=== PATIENT | male | born 1960 | race Caucasian/White ===

== ENCOUNTER 2019-10-15 17:23 | Emergency (ER) | payer OTHER ==
[~2019-10-15] VITALS: Ht 170.2 cm; Wt 76.8 kg
[~2019-10-15 17:23] MED LIST: QUET100T PO
[2019-10-15 17:27] VITALS: BP 114/72
[2019-10-15] MEDS ORDERED: HYD25 PO (17:32)
[2019-10-15] MEDS ORDERED: OMEG-50 PO (17:32)
[2019-10-15] MEDS ORDERED: RISP2TAB23 PO (17:32)
[2019-10-15] MEDS ORDERED: MULT1CAP32 PO (17:32)
[2019-10-15] MEDS ORDERED: QUET200T PO (17:32)
[2019-10-15] MEDS ORDERED: LEVO100 PO (17:32)
[2019-10-15] MEDS ORDERED: ESCI-8 PO (17:32)
[2019-10-15] MEDS ORDERED: ASPI-728 PO (17:32)
[2019-10-15 18:40] LABS: EOSINOPHILS % (AUTO) 2.4 % (1.0-6.0); HEMATOCRIT 38.6 % (41-53); HEMOGLOBIN 12.8 g/dL (13.5-17.5); LYMPHOCYTES # (AUTO) 2.2 K/uL (1.0-4.8); LYMPHOCYTES % (AUTO) 28.9 % (22.0-44.0); MEAN CORPUSCULAR HEMOGLOBIN 28.2 pg (26.0-34.0); MEAN CORPUSCULAR HGB CONC 33.3 G/dL (31.0-37.0); MEAN CORPUSCULAR VOLUME 85 fL (80-100); MONOCYTES # (AUTO) 0.6 K/uL (0.1-1.0); MONOCYTES % (AUTO) 8.4 % (2.0-9.0); NEUTROPHILS # (AUTO) 4.5 K/uL (1.8-7.7); NEUTROPHILS % (AUTO) 59.3 % (40.0-70.0); PLATELET COUNT (AUTO) 292 K/uL (150-450); RED BLOOD CELL COUNT(AUTO) 4.55 MIL/uL (4.50-5.90); RED CELL DISTRIBUTION WIDTH 15.4 % (11.5-14.5)
[2019-10-15 18:41] LABS: ANION GAP 7 mmol/L (8-16); CALCIUM, TOTAL 8.8 mg/dL (8.8-10.5); CARBON DIOXIDE 29 mmol/L (22-29); CHLORIDE 105 mmol/L (98-107); CREATININE 1.19 mg/dL (0.60-1.30); GLOMERULAR FILTR. RATE CALC > 60 mL/min (>60); GLUCOSE,RANDOM 105 mg/dL (70-110); POTASSIUM 3.8 mmol/L (3.5-5.1); SODIUM SERUM 141 mmol/L (136-145); UREA NITROGEN, BLOOD 18 mg/dL (7-18)
[2019-10-15 18:47] LABS: ALANINE AMINOTRANSFERASE 29 U/L (12-78); ALBUMIN 4.1 g/dL (3.4-5.0); ALKALINE PHOSPHATASE 73 U/L (46-116); ASPARTATE AMINOTRANSFERASE 26 U/L (15-37); BILIRUBIN,TOTAL 0.7 mg/dL (0.1-1.0); TOTAL PROTEIN, SERUM 7.5 g/dL (6.4-8.2)
[2019-10-15] MEDS ORDERED: RisperiDONE 1 MG TABLET PO ONE (19:00)
== END 2019-10-15 19:32 | disposition home or self-care (01) ==
LOC: EMS 17:38
DX: F20.9 Schizophrenia, unspecified (principal); Z79.82 Long term (current) use of aspirin
CPT/HCPCS: 36415; 80053; 85025; 99284; G0480

== ENCOUNTER 2020-05-07 10:36 | Inpatient (IN) | payer MEDICARE, MEDICAID ==
[~2020-05-07] VITALS: Ht 170.2 cm; Wt 93.0 kg
[~2020-05-07 10:36] MED LIST changes: +ASPI-1450 PO; +ESCI-8 PO; +HYD25 PO; +LEVO100 PO; +MULT1CAP32 PO; +OMEG-50 PO; -QUET100T PO; +QUET200T PO; +RISP2TAB45 PO
[2020-05-07 12:27] LABS: ANION GAP 10 mmol/L (8-16); CALCIUM, TOTAL 8.5 mg/dL (8.8-10.5); CARBON DIOXIDE 26 mmol/L (22-29); CHLORIDE 108 mmol/L (98-107); CREATININE 0.78 mg/dL (0.60-1.30); GLOMERULAR FILTR. RATE CALC > 60 mL/min (>60); GLUCOSE,RANDOM 98 mg/dL (70-110); POTASSIUM 4.4 mmol/L (3.5-5.1); SODIUM SERUM 144 mmol/L (136-145); UREA NITROGEN, BLOOD 12 mg/dL (7-18)
[2020-05-07 12:29] LABS: AMPHET/METH SCREEN,URINE NEGATIVE (NEGATIVE); BARBITURATE SCREEN, URINE NEGATIVE (NEGATIVE); BENZODIAZEPINES SCREEN,URINE NEGATIVE (NEGATIVE); CANNABINOID SCREEN,URINE NEGATIVE (NEGATIVE); COCAINE SCREEN,URINE NEGATIVE (NEGATIVE); METHADONE SCREEN, URINE NEGATIVE (NEGATIVE); OPIATE SCREEN,URINE NEGATIVE (NEGATIVE)
[2020-05-07 12:30] LABS: PHENCYCLIDINE SCREEN,URINE NEGATIVE (NEGATIVE)
[2020-05-07 12:31] LABS: BASOPHILS % (AUTO) 0.8 % (0.0-2.0); EOSINOPHILS % (AUTO) 4.6 % (1.0-6.0); HEMATOCRIT 36.8 % (41-53); LYMPHOCYTES # (AUTO) 1.6 K/uL (1.0-4.8); LYMPHOCYTES % (AUTO) 26.4 % (22.0-44.0); MEAN CORPUSCULAR HEMOGLOBIN 27.7 pg (26.0-34.0); MEAN CORPUSCULAR HGB CONC 32.6 G/dL (31.0-37.0); MEAN CORPUSCULAR VOLUME 85 fL (80-100); MONOCYTES # (AUTO) 0.6 K/uL (0.1-1.0); MONOCYTES % (AUTO) 9.4 % (2.0-9.0); NEUTROPHILS # (AUTO) 3.6 K/uL (1.8-7.7); NEUTROPHILS % (AUTO) 58.8 % (40.0-70.0); PLATELET COUNT (AUTO) 356 K/uL (150-450); RED BLOOD CELL COUNT(AUTO) 4.34 MIL/uL (4.50-5.90); RED CELL DISTRIBUTION WIDTH 15.5 % (11.5-14.5)
[2020-05-07 12:32] LABS: ALANINE AMINOTRANSFERASE 24 U/L (12-78); ALBUMIN 3.3 g/dL (3.4-5.0); ALKALINE PHOSPHATASE 81 U/L (46-116); ASPARTATE AMINOTRANSFERASE 22 U/L (15-37); BILIRUBIN,TOTAL 0.4 mg/dL (0.1-1.0); TOTAL PROTEIN, SERUM 6.6 g/dL (6.4-8.2)
[2020-05-07 13:19] LABS: COVID AG,FIA SOURCE NASOPHARYNGEAL
[2020-05-07 16:41] VITALS: BP 135/89
[2020-05-07] MEDS ORDERED: PNEUMOCOCCAL VACCINE POLYVALENT 0.5 ML VIAL [PPSV23] IM ONE (17:15)
[2020-05-08 00:50] VITALS: BP 137/79
[2020-05-08 07:31] LABS: CHOL/HDL RATIO 2.7 (4.2-7.3)
[2020-05-08 07:51] LABS: FREE T4 (FREE THYROXINE) 0.93 ng/dL (0.76-1.46); THYROID STIMULATING HORMONE 4.67 uIU/mL (0.36-3.74)
[2020-05-08 08:35] VITALS: BP 138/90
[2020-05-08] MEDS: ESCITALOPRAM OXALATE 10 MG TABLET PO SCH (11:05)
[2020-05-08] MEDS: BACITRACIN 28 GM OINTMENT TP SCH (16:06)
[2020-05-08 16:21] VITALS: BP 121/85
[2020-05-08] MEDS: QUEtiapine FUMARATE 200 MG TABLET PO SCH (20:27)
[2020-05-09 00:35] VITALS: BP 139/76
[2020-05-09 08:21] VITALS: BP 125/88
[2020-05-09] MEDS: ESCITALOPRAM OXALATE 10 MG TABLET PO SCH (08:41)
[2020-05-09] MEDS: BACITRACIN 28 GM OINTMENT TP SCH ×2 (08:41→17:10)
[2020-05-09 16:30] VITALS: BP 126/64
[2020-05-09] MEDS: LORazepam 2 MG TABLET PO PRN (17:11)
[2020-05-09] MEDS: QUEtiapine FUMARATE 200 MG TABLET PO SCH (20:05)
[2020-05-10 00:21] VITALS: BP 128/68
[2020-05-10 08:23] VITALS: BP 121/79
[2020-05-10] MEDS: ESCITALOPRAM OXALATE 10 MG TABLET PO SCH (10:00)
[2020-05-10] MEDS: BACITRACIN 28 GM OINTMENT TP SCH ×2 (10:02→19:34)
[2020-05-10 16:25] VITALS: BP 122/77
[2020-05-10] MEDS: QUEtiapine FUMARATE 200 MG TABLET PO SCH (20:11)
[2020-05-11 00:57] VITALS: BP 127/65
[2020-05-11 08:39] VITALS: BP 117/69
[2020-05-11] MEDS: ESCITALOPRAM OXALATE 10 MG TABLET PO SCH (08:39)
[2020-05-11] MEDS: BACITRACIN 28 GM OINTMENT TP SCH ×2 (08:39→16:01)
[2020-05-11] MEDS ORDERED: IBUPROFEN 400 MG TABLET PO PRN (15:30)
[2020-05-11] MEDS ORDERED: PETROLATUM,WHITE 28 GM JELLY TP PRN (15:30)
[2020-05-11] MEDS ORDERED: ACETAMINOPHEN 325 MG TABLET PO PRN (15:30)
[2020-05-11] MEDS ORDERED: DOCUSATE SODIUM 100 MG CAPSULE PO PRN (15:30)
[2020-05-11] MEDS ORDERED: MAGNESIUM HYDROXIDE SUSPENSION 30 ML UDCUP PO PRN (15:30)
[2020-05-11] MEDS ORDERED: NICOTINE 14 MG/24 HOUR PATCH TD PRN (15:30)
[2020-05-11] MEDS ORDERED: ONDANSETRON HCL 4 MG TABLET PO PRN (15:30)
[2020-05-11] MEDS ORDERED: CloNIDine HCL 0.1 MG TABLET PO PRN (15:30)
[2020-05-11] MEDS ORDERED: LOPERAMIDE HCL 2 MG CAPSULE PO PRN (15:30)
[2020-05-11] MEDS ORDERED: ALBUTEROL SULFATE HFA 90 MCG/PUFF 8 GM INHALER IH PRN (15:30)
[2020-05-11] MEDS ORDERED: MAG HYDROX/AL HYDROX/SIMETH ES 30 ML SUSPENSION UDCUP PO PRN (15:30)
[2020-05-11] MEDS ORDERED: GuaiFENesin/D-METHORPHAN [SUGAR-FREE] 200-20MG/10 ML SYRUP UDCUP PO PRN (15:30)
[2020-05-11 16:18] VITALS: BP 122/88
[2020-05-11] MEDS: QUEtiapine FUMARATE 200 MG TABLET PO SCH (20:03)
[2020-05-12 04:45] VITALS: BP 115/68
[2020-05-12] MEDS: BACITRACIN 28 GM OINTMENT TP SCH ×2 (08:05→16:04)
[2020-05-12] MEDS: ESCITALOPRAM OXALATE 10 MG TABLET PO SCH (08:05)
[2020-05-12 08:13] VITALS: BP 112/77
[2020-05-12 08:48] LABS: COVID AG,FIA SOURCE NASOPHARYNGEAL
[2020-05-12 16:15] VITALS: BP 117/72
[2020-05-12] MEDS: QUEtiapine FUMARATE 300 MG TABLET PO SCH (20:03)
[2020-05-13 00:49] VITALS: BP 102/64
[2020-05-13] MEDS: ESCITALOPRAM OXALATE 10 MG TABLET PO SCH (08:03)
[2020-05-13] MEDS: BACITRACIN 28 GM OINTMENT TP SCH ×2 (08:04→16:47)
[2020-05-13 08:29] VITALS: BP 120/73
[2020-05-13 16:13] VITALS: BP 125/73
[2020-05-13] MEDS: QUEtiapine FUMARATE 300 MG TABLET PO SCH (20:02)
[2020-05-14 01:03] VITALS: BP 109/68
[2020-05-14] MEDS: ESCITALOPRAM OXALATE 10 MG TABLET PO SCH (08:26)
[2020-05-14] MEDS: BACITRACIN 28 GM OINTMENT TP SCH ×2 (08:27→17:32)
[2020-05-14 08:55] VITALS: BP 121/79
[2020-05-14 16:12] VITALS: BP 124/94
[2020-05-14] MEDS: QUEtiapine FUMARATE 300 MG TABLET PO SCH (20:21)
[2020-05-15 06:22] VITALS: BP 103/83
[2020-05-15 08:37] VITALS: BP 118/80
[2020-05-15] MEDS: ESCITALOPRAM OXALATE 10 MG TABLET PO SCH (08:43)
[2020-05-15] MEDS: BACITRACIN 28 GM OINTMENT TP SCH ×2 (08:43→17:42)
[2020-05-15 16:31] VITALS: BP 121/86
[2020-05-15] MEDS: QUEtiapine FUMARATE 300 MG TABLET PO SCH (20:34)
[2020-05-16 01:07] VITALS: BP 118/84
[2020-05-16 08:21] VITALS: BP 131/71
[2020-05-16] MEDS: ESCITALOPRAM OXALATE 10 MG TABLET PO SCH (08:23)
[2020-05-16] MEDS: BACITRACIN 28 GM OINTMENT TP SCH ×2 (08:23→16:41)
[2020-05-16 16:19] VITALS: BP 115/71
[2020-05-16] MEDS: QUEtiapine FUMARATE 200 MG TABLET PO SCH (20:13)
[2020-05-17 05:51] VITALS: BP 120/78
[2020-05-17 08:30] VITALS: BP 114/68
[2020-05-17] MEDS: BACITRACIN 28 GM OINTMENT TP SCH ×2 (08:36→17:13)
[2020-05-17] MEDS: ESCITALOPRAM OXALATE 10 MG TABLET PO SCH (08:36)
[2020-05-17] MEDS: LORazepam 2 MG TABLET PO PRN (09:08)
[2020-05-17] MEDS: HALOPERIDOL 5 MG TABLET PO PRN ×2 (13:04→17:14)
[2020-05-17 16:11] VITALS: BP 127/77
[2020-05-17] MEDS: QUEtiapine FUMARATE 200 MG TABLET PO SCH (20:17)
[2020-05-18 05:40] VITALS: BP 122/70
[2020-05-18] MEDS: ESCITALOPRAM OXALATE 10 MG TABLET PO SCH (08:33)
[2020-05-18] MEDS: BACITRACIN 28 GM OINTMENT TP SCH ×2 (08:34→17:04)
[2020-05-18 08:49] VITALS: BP 134/76
[2020-05-18 16:27] VITALS: BP 123/86
[2020-05-18] MEDS: QUEtiapine FUMARATE 200 MG TABLET PO SCH (20:14)
[2020-05-19 04:42] VITALS: BP 127/93
[2020-05-19] MEDS: ESCITALOPRAM OXALATE 10 MG TABLET PO SCH (08:22)
[2020-05-19] MEDS: BACITRACIN 28 GM OINTMENT TP SCH ×2 (08:27→16:12)
[2020-05-19 08:56] LABS: COVID AG,FIA SOURCE NASOPHARYNGEAL
[2020-05-19 08:59] LABS: APPEARANCE,URINE CLEAR (CLEAR); BILIRUBIN,URINE NEGATIVE (NEGATIVE); GLUCOSE, URINE (UA) NEGATIVE (NEGATIVE); KETONES,URINE NEGATIVE (NEGATIVE); LEUKOCYTE ESTERASE ,URINE NEGATIVE (NEGATIVE); NITRATE,URINE NEGATIVE (NEGATIVE); OCCULT BLOOD,URINE NEGATIVE (NEGATIVE); PROTEIN,URINE NEGATIVE (NEGATIVE); UROBILINOGEN,URINE 0.2 mg/dL (<=1.0)
[2020-05-19 09:04] LABS: AMPHET/METH SCREEN,URINE NEGATIVE (NEGATIVE); BARBITURATE SCREEN, URINE NEGATIVE (NEGATIVE); BENZODIAZEPINES SCREEN,URINE NEGATIVE (NEGATIVE); CANNABINOID SCREEN,URINE NEGATIVE (NEGATIVE); COCAINE SCREEN,URINE NEGATIVE (NEGATIVE); METHADONE SCREEN, URINE NEGATIVE (NEGATIVE); OPIATE SCREEN,URINE NEGATIVE (NEGATIVE)
[2020-05-19 09:05] LABS: PHENCYCLIDINE SCREEN,URINE NEGATIVE (NEGATIVE)
[2020-05-19 09:12] VITALS: BP 137/86
[2020-05-19 16:36] VITALS: BP 139/86
[2020-05-19] MEDS: QUEtiapine FUMARATE 200 MG TABLET PO SCH (20:53)
[2020-05-20 03:51] VITALS: BP 104/74
[2020-05-20 08:37] VITALS: BP 135/86
[2020-05-20] MEDS: ESCITALOPRAM OXALATE 10 MG TABLET PO SCH (08:41)
[2020-05-20] MEDS: BACITRACIN 28 GM OINTMENT TP SCH ×2 (08:41→16:54)
[2020-05-20 16:14] VITALS: BP 137/81
[2020-05-20] MEDS: QUEtiapine FUMARATE 200 MG TABLET PO SCH (20:20)
[2020-05-21 00:26] VITALS: BP 121/91
[2020-05-21] MEDS: ESCITALOPRAM OXALATE 10 MG TABLET PO SCH (08:19)
[2020-05-21] MEDS: BACITRACIN 28 GM OINTMENT TP SCH ×2 (08:20→16:12)
[2020-05-21 08:32] VITALS: BP 130/90
[2020-05-21] MEDS: LORazepam 2 MG TABLET PO PRN (12:20)
[2020-05-21 16:12] VITALS: BP 107/75
[2020-05-21] MEDS: QUEtiapine FUMARATE 200 MG TABLET PO SCH (20:06)
[2020-05-22 06:18] VITALS: BP 110/66
[2020-05-22] MEDS: ESCITALOPRAM OXALATE 10 MG TABLET PO SCH (08:24)
[2020-05-22] MEDS: BACITRACIN 28 GM OINTMENT TP SCH ×2 (08:29→16:04)
[2020-05-22 08:30] VITALS: BP 138/78
[2020-05-22 16:15] VITALS: BP 129/89
[2020-05-22] MEDS: QUEtiapine FUMARATE 200 MG TABLET PO SCH (20:09)
[2020-05-23 05:56] VITALS: BP 124/88
[2020-05-23 08:09] VITALS: BP 132/91
[2020-05-23] MEDS: ESCITALOPRAM OXALATE 10 MG TABLET PO SCH (09:14)
[2020-05-23] MEDS: BACITRACIN 28 GM OINTMENT TP SCH ×2 (09:15→16:52)
[2020-05-23 16:06] VITALS: BP 140/96
[2020-05-23] MEDS: QUEtiapine FUMARATE 200 MG TABLET PO SCH (20:10)
[2020-05-24 04:47] VITALS: BP 112/67
[2020-05-24] MEDS: BACITRACIN 28 GM OINTMENT TP SCH ×2 (08:13→16:27)
[2020-05-24] MEDS: ESCITALOPRAM OXALATE 10 MG TABLET PO SCH (08:14)
[2020-05-24] MEDS: LORazepam 2 MG TABLET PO PRN (08:18)
[2020-05-24 09:35] VITALS: BP 119/74
[2020-05-24] MEDS: HALOPERIDOL 5 MG TABLET PO PRN (14:11)
[2020-05-24 16:16] VITALS: BP 117/76
[2020-05-24] MEDS: QUEtiapine FUMARATE 200 MG TABLET PO SCH (20:33)
[2020-05-25 07:08] VITALS: BP 102/80
[2020-05-25 08:17] VITALS: BP 110/72
[2020-05-25] MEDS: ESCITALOPRAM OXALATE 10 MG TABLET PO SCH (09:11)
[2020-05-25] MEDS: HALOPERIDOL 5 MG TABLET PO PRN ×2 (09:11→16:39)
[2020-05-25] MEDS: BACITRACIN 28 GM OINTMENT TP SCH ×2 (09:11→20:30)
[2020-05-25] MEDS ORDERED: TUBERCULIN, PURIFIED PROTEIN DERIVATIVE 5 TU/0.1 ML SYRINGE ID ONE (13:15)
[2020-05-25 16:16] VITALS: BP 148/72
[2020-05-25] MEDS: QUEtiapine FUMARATE 200 MG TABLET PO SCH (20:30)
[2020-05-26 05:34] VITALS: BP 122/86
[2020-05-26] MEDS: ESCITALOPRAM OXALATE 10 MG TABLET PO SCH (08:31)
[2020-05-26] MEDS: HALOPERIDOL 5 MG TABLET PO PRN (08:31)
[2020-05-26] MEDS: BACITRACIN 28 GM OINTMENT TP SCH (08:32)
[2020-05-26 08:49] VITALS: BP 141/77
[2020-05-26 16:26] VITALS: BP 121/90
[2020-05-26] MEDS: QUEtiapine FUMARATE 300 MG TABLET PO SCH (20:14)
[2020-05-27 06:07] VITALS: BP 106/62
[2020-05-27 08:03] LABS: ALANINE AMINOTRANSFERASE 23 U/L (12-78); ALBUMIN 3.6 g/dL (3.4-5.0); ALKALINE PHOSPHATASE 69 U/L (46-116); ANION GAP 5 mmol/L (8-16); ASPARTATE AMINOTRANSFERASE 13 U/L (15-37); BILIRUBIN,TOTAL 0.4 mg/dL (0.1-1.0); CALCIUM, TOTAL 8.9 mg/dL (8.8-10.5); CARBON DIOXIDE 29 mmol/L (22-29); CHLORIDE 106 mmol/L (98-107); CREATININE 0.84 mg/dL (0.60-1.30); GLOMERULAR FILTR. RATE CALC > 60 mL/min (>60); GLUCOSE,RANDOM 88 mg/dL (70-110); POTASSIUM 4.9 mmol/L (3.5-5.1); SODIUM SERUM 140 mmol/L (136-145); UREA NITROGEN, BLOOD 19 mg/dL (7-18)
[2020-05-27] MEDS: ESCITALOPRAM OXALATE 10 MG TABLET PO SCH (08:14)
[2020-05-27 08:29] VITALS: BP 128/88
[2020-05-27] MEDS: LORazepam 2 MG TABLET PO PRN (09:19)
[2020-05-27 16:29] VITALS: BP 124/90
[2020-05-27] MEDS: QUEtiapine FUMARATE 300 MG TABLET PO SCH (20:14)
[2020-05-28 00:30] VITALS: BP 114/73
[2020-05-28] MEDS: HALOPERIDOL 5 MG TABLET PO PRN ×2 (08:29→17:29)
[2020-05-28] MEDS: ESCITALOPRAM OXALATE 10 MG TABLET PO SCH (08:29)
[2020-05-28 08:51] VITALS: BP 119/81
[2020-05-28 16:18] VITALS: BP 135/95
[2020-05-28] MEDS: LORazepam 2 MG TABLET PO PRN (17:29)
[2020-05-28] MEDS: QUEtiapine FUMARATE 300 MG TABLET PO SCH (20:02)
[2020-05-29 00:10] VITALS: BP 116/73
[2020-05-29 08:14] LABS: APPEARANCE,URINE CLEAR (CLEAR); BILIRUBIN,URINE NEGATIVE (NEGATIVE); GLUCOSE, URINE (UA) NEGATIVE (NEGATIVE); KETONES,URINE NEGATIVE (NEGATIVE); LEUKOCYTE ESTERASE ,URINE NEGATIVE (NEGATIVE); NITRATE,URINE NEGATIVE (NEGATIVE); OCCULT BLOOD,URINE NEGATIVE (NEGATIVE); PROTEIN,URINE NEGATIVE (NEGATIVE); UROBILINOGEN,URINE 0.2 mg/dL (<=1.0)
[2020-05-29 08:18] VITALS: BP 125/82
[2020-05-29 08:18] LABS: BACTERIA,URINE None Seen /HPF (None Seen); RBC,URINE None Seen /HPF (0-2); WBC,URINE None Seen /HPF (0-5)
[2020-05-29] MEDS: ESCITALOPRAM OXALATE 10 MG TABLET PO SCH (08:43)
[2020-05-29 16:11] VITALS: BP 139/74
[2020-05-29] MEDS: LORazepam 2 MG TABLET PO PRN (17:16)
[2020-05-29] MEDS: QUEtiapine FUMARATE 300 MG TABLET PO SCH (21:06)
[2020-05-29] MEDS: ZOLPIDEM TARTRATE 10 MG TABLET PO PRN (21:06)
[2020-05-30 06:17] VITALS: BP 101/69
[2020-05-30 08:27] VITALS: BP 116/78
[2020-05-30] MEDS: ESCITALOPRAM OXALATE 10 MG TABLET PO SCH (08:36)
[2020-05-30] MEDS: LORazepam 2 MG TABLET PO PRN ×2 (08:37→16:34)
[2020-05-30] MEDS: HALOPERIDOL 5 MG TABLET PO PRN (12:15)
[2020-05-30 16:13] VITALS: BP 119/77
[2020-05-30] MEDS: QUEtiapine FUMARATE 300 MG TABLET PO SCH (20:50)
[2020-05-30] MEDS: ZOLPIDEM TARTRATE 10 MG TABLET PO PRN (20:55)
[2020-05-31 06:22] VITALS: BP 125/77
[2020-05-31] MEDS: ESCITALOPRAM OXALATE 10 MG TABLET PO SCH (08:16)
[2020-05-31 08:36] VITALS: BP 119/72
[2020-05-31 16:42] VITALS: BP 132/91
[2020-05-31] MEDS: LORazepam 2 MG TABLET PO PRN (17:18)
[2020-05-31] MEDS: HALOPERIDOL 5 MG TABLET PO PRN (17:18)
[2020-05-31] MEDS: QUEtiapine FUMARATE 300 MG TABLET PO SCH (20:07)
[2020-06-01 00:46] VITALS: BP 110/76
[2020-06-01] MEDS: ESCITALOPRAM OXALATE 10 MG TABLET PO SCH (08:13)
[2020-06-01] MEDS: HALOPERIDOL 5 MG TABLET PO PRN (08:13)
[2020-06-01 08:47] VITALS: BP 126/96
[2020-06-01 16:19] VITALS: BP 134/91
[2020-06-01] MEDS: QUEtiapine FUMARATE 300 MG TABLET PO SCH (20:04)
[2020-06-02 06:34] VITALS: BP 116/82
[2020-06-02] MEDS: HALOPERIDOL 5 MG TABLET PO PRN (08:11)
[2020-06-02] MEDS: ESCITALOPRAM OXALATE 10 MG TABLET PO SCH (08:11)
[2020-06-02 08:28] VITALS: BP 135/92
[2020-06-02 08:52] LABS: COVID AG,FIA SOURCE NASOPHARYNGEAL
[2020-06-02] MEDS: LORazepam 2 MG TABLET PO PRN (13:43)
[2020-06-02 16:28] VITALS: BP 123/77
[2020-06-02] MEDS: QUEtiapine FUMARATE 300 MG TABLET PO SCH (20:21)
[2020-06-03 06:10] VITALS: BP 114/72
[2020-06-03] MEDS: HALOPERIDOL 5 MG TABLET PO PRN (08:15)
[2020-06-03] MEDS: ESCITALOPRAM OXALATE 10 MG TABLET PO SCH (08:15)
[2020-06-03 08:50] VITALS: BP 134/88
[2020-06-03] MEDS: LORazepam 2 MG TABLET PO PRN (14:58)
[2020-06-03 16:08] VITALS: BP 136/81
[2020-06-03 16:18] VITALS: BP 136/81
[2020-06-03] MEDS: QUEtiapine FUMARATE 300 MG TABLET PO SCH (20:21)
[2020-06-04 00:32] VITALS: BP 111/74
[2020-06-04] MEDS: ESCITALOPRAM OXALATE 10 MG TABLET PO SCH (08:25)
[2020-06-04 08:26] VITALS: BP 128/73
[2020-06-04 16:13] VITALS: BP 140/97
[2020-06-04] MEDS: QUEtiapine FUMARATE 300 MG TABLET PO SCH (20:17)
[2020-06-05 00:09] VITALS: BP 124/78
[2020-06-05] MEDS: ZOLPIDEM TARTRATE 10 MG TABLET PO PRN (00:40)
[2020-06-05] MEDS: LORazepam 2 MG TABLET PO PRN ×2 (00:40→11:00)
[2020-06-05] MEDS: HALOPERIDOL 5 MG TABLET PO PRN (08:19)
[2020-06-05] MEDS: ESCITALOPRAM OXALATE 10 MG TABLET PO SCH (08:19)
[2020-06-05 08:58] VITALS: BP 130/81
[2020-06-05 10:25] VITALS: BP_SYST 122; BP_SYST 144; BP_DIAS 105; BP_DIAS 81
[2020-06-05 10:40] VITALS: BP 122/81
[2020-06-05 11:10] VITALS: BP 130/78
[2020-06-05 17:48] VITALS: BP 135/85
[2020-06-05] MEDS: QUEtiapine FUMARATE 300 MG TABLET PO SCH (20:02)
[2020-06-06 01:07] VITALS: BP 103/64
[2020-06-06 08:15] VITALS: BP 118/74
[2020-06-06] MEDS: ESCITALOPRAM OXALATE 10 MG TABLET PO SCH (08:21)
[2020-06-06 16:47] VITALS: BP 129/87
[2020-06-06] MEDS: QUEtiapine FUMARATE 300 MG TABLET PO SCH (20:48)
[2020-06-07 00:14] VITALS: BP 112/68
[2020-06-07] MEDS: ESCITALOPRAM OXALATE 10 MG TABLET PO SCH (08:10)
[2020-06-07 08:13] VITALS: BP 145/92
[2020-06-07 16:14] VITALS: BP 140/87
[2020-06-07] MEDS: HALOPERIDOL 5 MG TABLET PO PRN (17:30)
[2020-06-07] MEDS: QUEtiapine FUMARATE 300 MG TABLET PO SCH (21:52)
[2020-06-07] MEDS: LORazepam 2 MG TABLET PO PRN (23:53)
[2020-06-07] MEDS: ZOLPIDEM TARTRATE 10 MG TABLET PO PRN (23:53)
[2020-06-08 04:48] VITALS: BP 129/69
[2020-06-08 08:36] VITALS: BP 112/72
[2020-06-08] MEDS: ESCITALOPRAM OXALATE 10 MG TABLET PO SCH (08:38)
[2020-06-08] MEDS: LORazepam 2 MG TABLET PO PRN (08:38)
[2020-06-08 16:40] VITALS: BP 116/83
[2020-06-08] MEDS: QUEtiapine FUMARATE 300 MG TABLET PO SCH (20:56)
[2020-06-08] MEDS: HALOPERIDOL 5 MG TABLET PO PRN (21:28)
[2020-06-09] MEDS: ZOLPIDEM TARTRATE 10 MG TABLET PO PRN (00:21)
[2020-06-09] MEDS: LORazepam 2 MG TABLET PO PRN ×2 (00:21→08:34)
[2020-06-09 00:31] VITALS: BP 110/78
[2020-06-09 07:50] LABS: COVID AG,FIA SOURCE NASOPHARYNGEAL
[2020-06-09 08:33] VITALS: BP 126/92
[2020-06-09] MEDS: ESCITALOPRAM OXALATE 10 MG TABLET PO SCH (08:34)
[2020-06-09 16:12] VITALS: BP 110/76
[2020-06-09] MEDS: QUEtiapine FUMARATE 300 MG TABLET PO SCH (20:18)
[2020-06-10 06:37] VITALS: BP 128/84
[2020-06-10] MEDS: LORazepam 2 MG TABLET PO PRN (08:07)
[2020-06-10] MEDS: ESCITALOPRAM OXALATE 10 MG TABLET PO SCH (08:07)
[2020-06-10 08:17] VITALS: BP 124/78
[2020-06-10 16:15] VITALS: BP 128/79
[2020-06-10] MEDS: QUEtiapine FUMARATE 300 MG TABLET PO SCH (20:12)
[2020-06-11 05:03] VITALS: BP 108/78
[2020-06-11] MEDS: ESCITALOPRAM OXALATE 10 MG TABLET PO SCH (08:37)
[2020-06-11] MEDS: LORazepam 2 MG TABLET PO PRN ×2 (08:37→16:04)
[2020-06-11 08:39] VITALS: BP 136/82
[2020-06-11] MEDS: HALOPERIDOL 5 MG TABLET PO PRN (16:04)
[2020-06-11 17:33] VITALS: BP 129/89
[2020-06-11] MEDS: QUEtiapine FUMARATE 200 MG TABLET PO SCH (20:05)
[2020-06-12 01:53] VITALS: BP 122/72
[2020-06-12] MEDS: LORazepam 2 MG TABLET PO PRN ×2 (08:07→16:04)
[2020-06-12] MEDS: ESCITALOPRAM OXALATE 10 MG TABLET PO SCH (08:07)
[2020-06-12 08:15] VITALS: BP 150/72
[2020-06-12] MEDS: HALOPERIDOL 5 MG TABLET PO PRN (16:04)
[2020-06-12 16:15] VITALS: BP 113/69
[2020-06-12] MEDS: QUEtiapine FUMARATE 200 MG TABLET PO SCH (19:54)
[2020-06-13 00:10] VITALS: BP 120/74
[2020-06-13 08:17] VITALS: BP 103/72
[2020-06-13] MEDS: ESCITALOPRAM OXALATE 10 MG TABLET PO SCH (09:13)
[2020-06-13] MEDS: LORazepam 2 MG TABLET PO PRN ×2 (09:13→16:57)
[2020-06-13] MEDS: HALOPERIDOL 5 MG TABLET PO PRN (10:48)
[2020-06-13 16:24] VITALS: BP 114/82
[2020-06-13] MEDS: QUEtiapine FUMARATE 200 MG TABLET PO SCH (20:24)
[2020-06-14 02:02] VITALS: BP 102/73
[2020-06-14 08:13] VITALS: BP 100/65
[2020-06-14] MEDS: ESCITALOPRAM OXALATE 10 MG TABLET PO SCH (09:26)
[2020-06-14 16:21] VITALS: BP 134/68
[2020-06-14] MEDS: QUEtiapine FUMARATE 200 MG TABLET PO SCH (20:27)
[2020-06-15 00:44] VITALS: BP 121/79
[2020-06-15] MEDS: HALOPERIDOL 5 MG TABLET PO PRN (08:08)
[2020-06-15] MEDS: ESCITALOPRAM OXALATE 10 MG TABLET PO SCH (08:08)
[2020-06-15 08:34] VITALS: BP 145/94
[2020-06-15] MEDS: LORazepam 2 MG TABLET PO PRN (12:27)
[2020-06-15 16:10] VITALS: BP 121/96
[2020-06-15] MEDS: QUEtiapine FUMARATE 200 MG TABLET PO SCH (20:12)
[2020-06-16 04:57] VITALS: BP 123/89
[2020-06-16 08:19] VITALS: BP 119/62
[2020-06-16 08:20] LABS: COVID AG,FIA SOURCE NASOPHARYNGEAL
[2020-06-16] MEDS: ESCITALOPRAM OXALATE 10 MG TABLET PO SCH (08:51)
[2020-06-16 16:07] VITALS: BP 129/71
[2020-06-16] MEDS: QUEtiapine FUMARATE 200 MG TABLET PO SCH (20:14)
[2020-06-17 01:07] VITALS: BP 126/76
[2020-06-17 09:07] VITALS: BP 139/97
[2020-06-17] MEDS: ESCITALOPRAM OXALATE 10 MG TABLET PO SCH (09:59)
[2020-06-17 17:26] VITALS: BP 139/86
[2020-06-17] MEDS: QUEtiapine FUMARATE 200 MG TABLET PO SCH (21:21)
[2020-06-18 05:43] VITALS: BP 129/75
[2020-06-18 08:50] VITALS: BP 134/85
[2020-06-18] MEDS: ESCITALOPRAM OXALATE 10 MG TABLET PO SCH (09:36)
[2020-06-18] MEDS: LORazepam 2 MG TABLET PO PRN (09:38)
[2020-06-18 17:35] VITALS: BP 108/71
[2020-06-18] MEDS: QUEtiapine FUMARATE 200 MG TABLET PO SCH (20:40)
[2020-06-19 05:52] VITALS: BP 132/88
[2020-06-19 08:24] VITALS: BP 118/78
[2020-06-19] MEDS: ESCITALOPRAM OXALATE 10 MG TABLET PO SCH (09:55)
[2020-06-19 16:35] VITALS: BP 133/91
[2020-06-19] MEDS: QUEtiapine FUMARATE 200 MG TABLET PO SCH (21:16)
[2020-06-20 01:26] VITALS: BP 120/68
[2020-06-20 09:07] VITALS: BP 149/98
[2020-06-20] MEDS: ESCITALOPRAM OXALATE 10 MG TABLET PO SCH (09:16)
[2020-06-20 16:30] VITALS: BP 138/91
[2020-06-20] MEDS: QUEtiapine FUMARATE 200 MG TABLET PO SCH (20:18)
[2020-06-21 00:42] VITALS: BP 115/82
[2020-06-21 08:39] VITALS: BP 133/91
[2020-06-21] MEDS: ESCITALOPRAM OXALATE 10 MG TABLET PO SCH (09:40)
[2020-06-21 17:56] VITALS: BP 139/86
[2020-06-21] MEDS: QUEtiapine FUMARATE 200 MG TABLET PO SCH (20:55)
[2020-06-22 00:54] VITALS: BP 118/72
[2020-06-22 08:51] VITALS: BP 133/90
[2020-06-22] MEDS: ESCITALOPRAM OXALATE 10 MG TABLET PO SCH (09:57)
[2020-06-22 16:27] VITALS: BP 126/87
[2020-06-22] MEDS: QUEtiapine FUMARATE 200 MG TABLET PO SCH (20:28)
[2020-06-23 04:16] VITALS: BP 116/71
[2020-06-23 09:30] VITALS: BP 121/71
[2020-06-23] MEDS: ESCITALOPRAM OXALATE 10 MG TABLET PO SCH (09:39)
[2020-06-23 17:27] VITALS: BP 123/79
[2020-06-23] MEDS: QUEtiapine FUMARATE 200 MG TABLET PO SCH (21:28)
[2020-06-24 05:25] VITALS: BP 118/68
[2020-06-24 07:29] LABS: COVID AG,FIA SOURCE NASAL SWAB
[2020-06-24 08:57] VITALS: BP 120/82
[2020-06-24] MEDS: ESCITALOPRAM OXALATE 10 MG TABLET PO SCH (09:23)
[2020-06-24 17:11] VITALS: BP 129/88
[2020-06-24] MEDS: QUEtiapine FUMARATE 200 MG TABLET PO SCH (21:06)
[2020-06-25 00:42] VITALS: BP 138/83
[2020-06-25 08:28] VITALS: BP 140/88
[2020-06-25] MEDS: ESCITALOPRAM OXALATE 10 MG TABLET PO SCH (09:31)
[2020-06-25 17:10] VITALS: BP 130/84
[2020-06-25] MEDS: QUEtiapine FUMARATE 200 MG TABLET PO SCH (20:22)
[2020-06-26 05:03] VITALS: BP 128/81
[2020-06-26 08:21] VITALS: BP 123/88
[2020-06-26] MEDS: ESCITALOPRAM OXALATE 10 MG TABLET PO SCH (08:49)
[2020-06-26] MEDS: HALOPERIDOL 5 MG TABLET PO PRN (08:49)
[2020-06-26] MEDS: LORazepam 2 MG TABLET PO PRN (08:49)
[2020-06-26 17:20] VITALS: BP 103/70
[2020-06-26] MEDS: QUEtiapine FUMARATE 200 MG TABLET PO SCH (20:59)
[2020-06-27 06:26] VITALS: BP 121/81
[2020-06-27] MEDS: ESCITALOPRAM OXALATE 10 MG TABLET PO SCH (08:40)
[2020-06-27 08:57] VITALS: BP 135/91
[2020-06-27 16:18] VITALS: BP_SYST 121; BP_SYST 140; BP_DIAS 74; BP_DIAS 87
[2020-06-27] MEDS: HALOPERIDOL 5 MG TABLET PO PRN (16:39)
[2020-06-27] MEDS: LORazepam 2 MG TABLET PO PRN (16:39)
[2020-06-27] MEDS: QUEtiapine FUMARATE 200 MG TABLET PO SCH (21:08)
[2020-06-28 04:21] VITALS: BP 124/78
[2020-06-28 09:16] VITALS: BP 114/79
[2020-06-28] MEDS: ESCITALOPRAM OXALATE 10 MG TABLET PO SCH ×2 (09:42→09:43)
[2020-06-28 16:25] VITALS: BP 130/80
[2020-06-28] MEDS: QUEtiapine FUMARATE 200 MG TABLET PO SCH (20:52)
[2020-06-29 05:04] VITALS: BP 129/78
[2020-06-29 08:43] VITALS: BP 120/79
[2020-06-29 16:50] VITALS: BP 133/87
[2020-06-29] MEDS: QUEtiapine FUMARATE 200 MG TABLET PO SCH (20:43)
[2020-06-30 05:45] VITALS: BP 118/78
[2020-06-30 08:36] VITALS: BP 131/84
[2020-06-30] MEDS: LORazepam 2 MG TABLET PO PRN (08:46)
[2020-06-30] MEDS: HALOPERIDOL 5 MG TABLET PO PRN ×2 (08:46→16:27)
[2020-06-30] MEDS: ESCITALOPRAM OXALATE 10 MG TABLET PO SCH (08:46)
[2020-06-30 17:29] VITALS: BP 108/78
[2020-06-30] MEDS: QUEtiapine FUMARATE 200 MG TABLET PO SCH (20:10)
[2020-07-01 03:41] VITALS: BP 114/72
[2020-07-01] MEDS: ESCITALOPRAM OXALATE 10 MG TABLET PO SCH (09:13)
[2020-07-01 09:53] VITALS: BP 137/84
[2020-07-01 17:01] VITALS: BP 132/75
[2020-07-01] MEDS: QUEtiapine FUMARATE 200 MG TABLET PO SCH (20:52)
[2020-07-02 06:05] VITALS: BP 108/69
[2020-07-02 08:30] VITALS: BP 116/74
[2020-07-02] MEDS: ESCITALOPRAM OXALATE 10 MG TABLET PO SCH (09:01)
[2020-07-02 16:28] VITALS: BP 131/81
[2020-07-02] MEDS: QUEtiapine FUMARATE 200 MG TABLET PO SCH (20:40)
[2020-07-03 00:32] VITALS: BP 128/81
[2020-07-03 08:25] VITALS: BP 118/80
[2020-07-03] MEDS: ESCITALOPRAM OXALATE 10 MG TABLET PO SCH (09:15)
[2020-07-03 16:20] VITALS: BP 116/72
[2020-07-03] MEDS: QUEtiapine FUMARATE 200 MG TABLET PO SCH (20:03)
[2020-07-04 01:42] VITALS: BP 121/74
[2020-07-04 04:30] VITALS: BP 120/74
[2020-07-04 08:29] VITALS: BP 126/80
[2020-07-04] MEDS: ESCITALOPRAM OXALATE 10 MG TABLET PO SCH (09:38)
[2020-07-04] MEDS: LORazepam 2 MG TABLET PO PRN (09:42)
[2020-07-04] MEDS: HALOPERIDOL 5 MG TABLET PO PRN (12:16)
[2020-07-04 16:07] VITALS: BP 134/82
[2020-07-04] MEDS: QUEtiapine FUMARATE 200 MG TABLET PO SCH (21:14)
[2020-07-05 06:02] VITALS: BP 136/84
[2020-07-05 08:12] VITALS: BP 103/69
[2020-07-05] MEDS: ESCITALOPRAM OXALATE 10 MG TABLET PO SCH (08:22)
[2020-07-05 16:00] VITALS: BP 117/72
[2020-07-05] MEDS: QUEtiapine FUMARATE 200 MG TABLET PO SCH (20:32)
[2020-07-06 00:16] VITALS: BP 106/68
[2020-07-06] MEDS: ESCITALOPRAM OXALATE 10 MG TABLET PO SCH (08:10)
[2020-07-06 08:11] VITALS: BP 110/70
[2020-07-06 08:41] LABS: COVID AG,FIA SOURCE NASOPHARYNGEAL
[2020-07-06 16:31] VITALS: BP 132/86
[2020-07-06] MEDS: LORazepam 2 MG TABLET PO PRN (19:11)
[2020-07-06] MEDS: HALOPERIDOL 5 MG TABLET PO PRN (19:11)
[2020-07-06] MEDS: QUEtiapine FUMARATE 200 MG TABLET PO SCH (20:04)
[2020-07-07 04:48] VITALS: BP 105/68
[2020-07-07] MEDS: ESCITALOPRAM OXALATE 10 MG TABLET PO SCH (08:06)
[2020-07-07] MEDS: HALOPERIDOL 5 MG TABLET PO PRN (08:06)
[2020-07-07 08:24] VITALS: BP 102/72
[2020-07-07 16:29] VITALS: BP 125/79
[2020-07-07] MEDS: QUEtiapine FUMARATE 200 MG TABLET PO SCH (20:14)
[2020-07-08 00:24] VITALS: BP 118/76
[2020-07-08 08:24] VITALS: BP 104/65
[2020-07-08] MEDS: ESCITALOPRAM OXALATE 10 MG TABLET PO SCH (08:42)
[2020-07-08 16:35] VITALS: BP 134/90
[2020-07-08] MEDS: QUEtiapine FUMARATE 200 MG TABLET PO SCH (20:57)
[2020-07-09 05:24] VITALS: BP 125/78
[2020-07-09 08:24] VITALS: BP 102/67
[2020-07-09] MEDS: ESCITALOPRAM OXALATE 10 MG TABLET PO SCH (08:36)
[2020-07-09] MEDS: HALOPERIDOL 5 MG TABLET PO PRN ×2 (08:36→18:36)
[2020-07-09 16:13] VITALS: BP 124/87
[2020-07-09] MEDS: LORazepam 2 MG TABLET PO PRN (18:36)
[2020-07-09] MEDS: QUEtiapine FUMARATE 200 MG TABLET PO SCH (20:14)
[2020-07-10 03:51] VITALS: BP 128/88
[2020-07-10] MEDS: HALOPERIDOL 5 MG TABLET PO PRN ×2 (08:26→16:11)
[2020-07-10] MEDS: ESCITALOPRAM OXALATE 10 MG TABLET PO SCH (08:27)
[2020-07-10 09:02] VITALS: BP 103/71
[2020-07-10 16:01] VITALS: BP 122/85
[2020-07-10] MEDS: LORazepam 2 MG TABLET PO PRN (16:11)
[2020-07-10] MEDS: QUEtiapine FUMARATE 200 MG TABLET PO SCH (20:37)
[2020-07-11 05:37] VITALS: BP 118/82
[2020-07-11 08:39] VITALS: BP 111/71
[2020-07-11] MEDS: ESCITALOPRAM OXALATE 10 MG TABLET PO SCH (08:46)
[2020-07-11 16:24] VITALS: BP 119/78
[2020-07-11] MEDS: QUEtiapine FUMARATE 200 MG TABLET PO SCH (21:30)
[2020-07-12 03:27] VITALS: BP 125/65
[2020-07-12 08:44] VITALS: BP 105/73
[2020-07-12] MEDS: ESCITALOPRAM OXALATE 10 MG TABLET PO SCH (08:45)
[2020-07-12] MEDS: LORazepam 2 MG TABLET PO PRN (08:45)
[2020-07-12 16:23] VITALS: BP 121/74
[2020-07-12] MEDS: QUEtiapine FUMARATE 200 MG TABLET PO SCH (20:31)
[2020-07-13 05:18] VITALS: BP 96/69
[2020-07-13 09:18] VITALS: BP 110/77
[2020-07-13] MEDS: ESCITALOPRAM OXALATE 10 MG TABLET PO SCH (10:15)
[2020-07-13 16:45] VITALS: BP 129/80
[2020-07-13] MEDS: QUEtiapine FUMARATE 200 MG TABLET PO SCH (20:05)
[2020-07-14 00:57] VITALS: BP 118/78
[2020-07-14 08:22] VITALS: BP 131/81
[2020-07-14] MEDS: ESCITALOPRAM OXALATE 10 MG TABLET PO SCH (08:43)
[2020-07-14 16:22] VITALS: BP 128/89
[2020-07-14] MEDS: QUEtiapine FUMARATE 200 MG TABLET PO SCH (20:37)
[2020-07-15 06:17] VITALS: BP 132/86
[2020-07-15 08:28] VITALS: BP 126/80
[2020-07-15] MEDS: ESCITALOPRAM OXALATE 10 MG TABLET PO SCH (09:51)
[2020-07-15 16:33] VITALS: BP 129/84
[2020-07-15] MEDS: QUEtiapine FUMARATE 200 MG TABLET PO SCH (21:33)
[2020-07-16 05:19] VITALS: BP 136/91
[2020-07-16 08:22] VITALS: BP 122/80
[2020-07-16] MEDS: ESCITALOPRAM OXALATE 10 MG TABLET PO SCH (09:35)
[2020-07-16 16:13] VITALS: BP 133/95
[2020-07-16] MEDS: QUEtiapine FUMARATE 200 MG TABLET PO SCH (20:05)
[2020-07-17 06:31] VITALS: BP 111/72
[2020-07-17 08:36] VITALS: BP 112/76
[2020-07-17] MEDS: ESCITALOPRAM OXALATE 10 MG TABLET PO SCH (09:38)
[2020-07-17 16:22] VITALS: BP 135/94
[2020-07-17] MEDS: QUEtiapine FUMARATE 200 MG TABLET PO SCH (20:10)
[2020-07-18 00:51] VITALS: BP 130/96
[2020-07-18 08:23] VITALS: BP 135/90
[2020-07-18] MEDS: ESCITALOPRAM OXALATE 10 MG TABLET PO SCH (09:09)
[2020-07-18 16:21] VITALS: BP 128/86
[2020-07-18] MEDS: LORazepam 2 MG TABLET PO PRN (16:47)
[2020-07-18] MEDS: QUEtiapine FUMARATE 200 MG TABLET PO SCH (20:14)
[2020-07-19 06:16] VITALS: BP 114/68
[2020-07-19 08:23] VITALS: BP 111/85
[2020-07-19] MEDS: ESCITALOPRAM OXALATE 10 MG TABLET PO SCH (09:16)
[2020-07-19] MEDS: LORazepam 2 MG TABLET PO PRN (09:43)
[2020-07-19 16:17] VITALS: BP 114/76
[2020-07-19] MEDS: HALOPERIDOL 5 MG TABLET PO PRN (18:16)
[2020-07-19] MEDS: QUEtiapine FUMARATE 200 MG TABLET PO SCH (21:08)
[2020-07-20 01:58] VITALS: BP 106/68
[2020-07-20 09:06] VITALS: BP 110/75
[2020-07-20] MEDS: ESCITALOPRAM OXALATE 10 MG TABLET PO SCH (09:28)
[2020-07-20 16:38] VITALS: BP 135/89
[2020-07-20] MEDS: HALOPERIDOL 5 MG TABLET PO PRN (16:44)
[2020-07-20] MEDS: LORazepam 2 MG TABLET PO PRN (20:45)
[2020-07-20] MEDS: QUEtiapine FUMARATE 200 MG TABLET PO SCH (20:45)
[2020-07-21 06:32] VITALS: BP 122/78
[2020-07-21 08:45] VITALS: BP 101/74
[2020-07-21] MEDS: ESCITALOPRAM OXALATE 10 MG TABLET PO SCH (10:06)
[2020-07-21 16:20] VITALS: BP 129/80
[2020-07-21] MEDS: QUEtiapine FUMARATE 200 MG TABLET PO SCH (20:57)
[2020-07-21] MEDS: ZOLPIDEM TARTRATE 10 MG TABLET PO PRN (20:57)
[2020-07-22 03:15] VITALS: BP 129/84
[2020-07-22 08:18] VITALS: BP 102/70
[2020-07-22] MEDS: ESCITALOPRAM OXALATE 10 MG TABLET PO SCH (09:14)
[2020-07-22] MEDS: LORazepam 2 MG TABLET PO PRN (16:10)
[2020-07-22 16:12] VITALS: BP 100/73
[2020-07-22] MEDS: QUEtiapine FUMARATE 200 MG TABLET PO SCH (20:46)
[2020-07-23 01:46] VITALS: BP 128/85
[2020-07-23 08:16] VITALS: BP 100/67
[2020-07-23] MEDS: ESCITALOPRAM OXALATE 10 MG TABLET PO SCH (09:00)
[2020-07-23 16:39] VITALS: BP 129/78
[2020-07-23] MEDS: QUEtiapine FUMARATE 200 MG TABLET PO SCH (20:24)
[2020-07-24 04:50] VITALS: BP 128/68
[2020-07-24] MEDS: ESCITALOPRAM OXALATE 10 MG TABLET PO SCH (08:34)
[2020-07-24 09:11] VITALS: BP 104/61
[2020-07-24] MEDS: LORazepam 2 MG TABLET PO PRN (16:29)
[2020-07-24 16:38] VITALS: BP 130/83
[2020-07-24] MEDS: QUEtiapine FUMARATE 200 MG TABLET PO SCH (20:09)
[2020-07-25 02:14] VITALS: BP 124/68
[2020-07-25 08:09] VITALS: BP 111/80
[2020-07-25] MEDS: ESCITALOPRAM OXALATE 10 MG TABLET PO SCH (08:18)
[2020-07-25] MEDS: LORazepam 2 MG TABLET PO PRN (15:58)
[2020-07-25 16:08] VITALS: BP 106/71
[2020-07-25] MEDS: QUEtiapine FUMARATE 200 MG TABLET PO SCH (20:10)
[2020-07-26 06:10] VITALS: BP 110/68
[2020-07-26 06:13] VITALS: BP 127/89
[2020-07-26 08:12] VITALS: BP 100/70
[2020-07-26] MEDS: LORazepam 2 MG TABLET PO PRN ×2 (08:44→16:19)
[2020-07-26] MEDS: ESCITALOPRAM OXALATE 10 MG TABLET PO SCH (08:44)
[2020-07-26 16:19] VITALS: BP 119/80
[2020-07-26] MEDS: QUEtiapine FUMARATE 200 MG TABLET PO SCH (20:05)
[2020-07-27 00:28] VITALS: BP 122/80
[2020-07-27] MEDS: ESCITALOPRAM OXALATE 10 MG TABLET PO SCH (08:25)
[2020-07-27 08:40] VITALS: BP 106/75
[2020-07-27 16:28] VITALS: BP 125/76
[2020-07-27] MEDS: QUEtiapine FUMARATE 200 MG TABLET PO SCH (20:37)
[2020-07-28 04:49] VITALS: BP 121/78
[2020-07-28 08:28] VITALS: BP 101/69
[2020-07-28] MEDS: ESCITALOPRAM OXALATE 10 MG TABLET PO SCH (08:52)
[2020-07-28] MEDS: LORazepam 2 MG TABLET PO PRN (16:03)
[2020-07-28 16:27] VITALS: BP 112/77
[2020-07-28] MEDS: QUEtiapine FUMARATE 200 MG TABLET PO SCH (20:45)
[2020-07-29 04:30] VITALS: BP 132/78
[2020-07-29] MEDS: ESCITALOPRAM OXALATE 10 MG TABLET PO SCH (08:25)
[2020-07-29 08:34] VITALS: BP 100/64
[2020-07-29 16:27] VITALS: BP 127/80
[2020-07-29] MEDS: LORazepam 2 MG TABLET PO PRN (16:30)
[2020-07-29] MEDS: QUEtiapine FUMARATE 200 MG TABLET PO SCH (20:56)
[2020-07-30 04:46] VITALS: BP 125/72
[2020-07-30] MEDS: ESCITALOPRAM OXALATE 10 MG TABLET PO SCH (08:39)
[2020-07-30 08:48] VITALS: BP 94/65
[2020-07-30 16:23] VITALS: BP 114/78
[2020-07-30] MEDS: QUEtiapine FUMARATE 200 MG TABLET PO SCH (21:09)
[2020-07-31 02:06] VITALS: BP 110/71
[2020-07-31] MEDS: ESCITALOPRAM OXALATE 10 MG TABLET PO SCH (08:55)
[2020-07-31 09:10] VITALS: BP 108/78
[2020-07-31 16:31] VITALS: BP 110/64
[2020-07-31] MEDS: QUEtiapine FUMARATE 200 MG TABLET PO SCH (20:16)
[2020-08-01 01:59] VITALS: BP 110/74
[2020-08-01] MEDS: ESCITALOPRAM OXALATE 10 MG TABLET PO SCH (08:00)
[2020-08-01 09:23] VITALS: BP 121/82
[2020-08-01 16:17] VITALS: BP 126/86
[2020-08-01] MEDS: QUEtiapine FUMARATE 200 MG TABLET PO SCH (20:29)
[2020-08-02 04:02] VITALS: BP 120/74
[2020-08-02] MEDS: ESCITALOPRAM OXALATE 10 MG TABLET PO SCH (08:56)
[2020-08-02 09:08] VITALS: BP 120/85
[2020-08-02 16:15] VITALS: BP 137/80
[2020-08-02] MEDS: QUEtiapine FUMARATE 200 MG TABLET PO SCH (21:06)
[2020-08-03 05:44] VITALS: BP 149/80
[2020-08-03 08:21] VITALS: BP 111/77
[2020-08-03] MEDS: ESCITALOPRAM OXALATE 10 MG TABLET PO SCH (09:27)
[2020-08-03 18:03] VITALS: BP 114/77
[2020-08-03] MEDS: QUEtiapine FUMARATE 200 MG TABLET PO SCH (21:09)
[2020-08-04 03:44] VITALS: BP 115/80
[2020-08-04 08:27] VITALS: BP 111/79
[2020-08-04] MEDS: ESCITALOPRAM OXALATE 10 MG TABLET PO SCH (09:31)
[2020-08-04 16:33] VITALS: BP 124/80
[2020-08-04] MEDS: QUEtiapine FUMARATE 200 MG TABLET PO SCH (21:07)
[2020-08-05 02:37] VITALS: BP 122/71
[2020-08-05 08:10] VITALS: BP 118/80
[2020-08-05] MEDS: ESCITALOPRAM OXALATE 10 MG TABLET PO SCH (08:29)
[2020-08-05 16:17] VITALS: BP 127/87
[2020-08-05] MEDS: QUEtiapine FUMARATE 200 MG TABLET PO SCH (20:29)
[2020-08-06 05:55] VITALS: BP 119/81
[2020-08-06 08:30] VITALS: BP 119/85
[2020-08-06] MEDS: ESCITALOPRAM OXALATE 10 MG TABLET PO SCH (08:43)
[2020-08-06 16:28] VITALS: BP 140/89
[2020-08-06] MEDS: QUEtiapine FUMARATE 200 MG TABLET PO SCH (20:55)
[2020-08-07 06:12] VITALS: BP 119/78
[2020-08-07 08:26] VITALS: BP 120/91
[2020-08-07] MEDS: ESCITALOPRAM OXALATE 10 MG TABLET PO SCH (09:13)
[2020-08-07] MEDS: LORazepam 2 MG TABLET PO PRN (16:59)
[2020-08-07 17:04] VITALS: BP 136/89
[2020-08-07] MEDS: QUEtiapine FUMARATE 200 MG TABLET PO SCH (20:59)
[2020-08-08 04:00] VITALS: BP 121/88
[2020-08-08 08:17] VITALS: BP 115/74
[2020-08-08] MEDS: ESCITALOPRAM OXALATE 10 MG TABLET PO SCH (08:46)
[2020-08-08] MEDS: DIVALPROEX SODIUM 250 MG DR TABLET PO SCH ×2 (10:05→20:35)
[2020-08-08] MEDS: LORazepam 2 MG TABLET PO PRN (14:08)
[2020-08-08 16:24] VITALS: BP 128/76
[2020-08-08 16:52] VITALS: BP 128/75
[2020-08-08] MEDS: QUEtiapine FUMARATE 200 MG TABLET PO SCH (20:35)
[2020-08-09 03:37] VITALS: BP 102/66
[2020-08-09 08:14] VITALS: BP 108/71
[2020-08-09] MEDS: ESCITALOPRAM OXALATE 10 MG TABLET PO SCH (09:44)
[2020-08-09] MEDS: DIVALPROEX SODIUM 250 MG DR TABLET PO SCH ×2 (09:44→20:44)
[2020-08-09 16:24] VITALS: BP 122/79
[2020-08-09] MEDS: QUEtiapine FUMARATE 200 MG TABLET PO SCH (20:44)
[2020-08-10 04:49] VITALS: BP 112/79
[2020-08-10 08:14] VITALS: BP 114/76
[2020-08-10] MEDS: DIVALPROEX SODIUM 250 MG DR TABLET PO SCH ×2 (09:20→20:24)
[2020-08-10] MEDS: ESCITALOPRAM OXALATE 10 MG TABLET PO SCH (09:20)
[2020-08-10] MEDS: LORazepam 2 MG TABLET PO PRN (09:29)
[2020-08-10 16:11] VITALS: BP 103/69
[2020-08-10] MEDS: QUEtiapine FUMARATE 200 MG TABLET PO SCH (20:24)
[2020-08-11 06:47] VITALS: BP 118/78
[2020-08-11] MEDS: DIVALPROEX SODIUM 250 MG DR TABLET PO SCH ×2 (08:16→20:56)
[2020-08-11] MEDS: ESCITALOPRAM OXALATE 10 MG TABLET PO SCH (08:16)
[2020-08-11 08:20] VITALS: BP 125/79
[2020-08-11 16:16] VITALS: BP 120/75
[2020-08-11] MEDS: LORazepam 2 MG TABLET PO PRN (20:56)
[2020-08-11] MEDS: QUEtiapine FUMARATE 200 MG TABLET PO SCH (20:56)
[2020-08-12 06:04] VITALS: BP 122/82
[2020-08-12 08:19] VITALS: BP 110/84
[2020-08-12] MEDS: DIVALPROEX SODIUM 250 MG DR TABLET PO SCH ×2 (08:21→20:47)
[2020-08-12] MEDS: ESCITALOPRAM OXALATE 10 MG TABLET PO SCH (08:21)
[2020-08-12 16:26] VITALS: BP 104/71
[2020-08-12] MEDS: QUEtiapine FUMARATE 200 MG TABLET PO SCH (20:47)
[2020-08-13 00:53] VITALS: BP 116/79
[2020-08-13 08:42] VITALS: BP 109/71
[2020-08-13] MEDS: ESCITALOPRAM OXALATE 10 MG TABLET PO SCH (09:10)
[2020-08-13] MEDS: DIVALPROEX SODIUM 250 MG DR TABLET PO SCH ×2 (09:10→20:50)
[2020-08-13] MEDS: LORazepam 2 MG TABLET PO PRN (09:10)
[2020-08-13 16:24] VITALS: BP 115/86
[2020-08-13] MEDS: QUEtiapine FUMARATE 200 MG TABLET PO SCH (20:50)
[2020-08-14 02:17] VITALS: BP 118/74
[2020-08-14 08:16] VITALS: BP 113/66
[2020-08-14] MEDS: DIVALPROEX SODIUM 250 MG DR TABLET PO SCH ×2 (08:43→21:04)
[2020-08-14] MEDS: ESCITALOPRAM OXALATE 10 MG TABLET PO SCH (08:43)
[2020-08-14 16:25] VITALS: BP 122/83
[2020-08-14] MEDS: QUEtiapine FUMARATE 200 MG TABLET PO SCH (21:04)
[2020-08-15 02:41] VITALS: BP 124/80
[2020-08-15 08:41] VITALS: BP 104/73
[2020-08-15] MEDS: DIVALPROEX SODIUM 250 MG DR TABLET PO SCH ×2 (08:44→20:48)
[2020-08-15] MEDS: ESCITALOPRAM OXALATE 10 MG TABLET PO SCH (08:44)
[2020-08-15] MEDS: LORazepam 2 MG TABLET PO PRN (08:44)
[2020-08-15 16:14] VITALS: BP 107/76
[2020-08-15] MEDS: QUEtiapine FUMARATE 200 MG TABLET PO SCH (20:47)
[2020-08-16 00:17] VITALS: BP 111/66
[2020-08-16 08:15] VITALS: BP 106/75
[2020-08-16] MEDS: DIVALPROEX SODIUM 250 MG DR TABLET PO SCH ×2 (08:44→20:33)
[2020-08-16] MEDS: ESCITALOPRAM OXALATE 10 MG TABLET PO SCH (08:44)
[2020-08-16 16:08] VITALS: BP 106/66
[2020-08-16] MEDS: QUEtiapine FUMARATE 200 MG TABLET PO SCH (20:33)
[2020-08-17 02:31] VITALS: BP 124/81
[2020-08-17] MEDS: DIVALPROEX SODIUM 250 MG DR TABLET PO SCH ×2 (08:29→20:41)
[2020-08-17] MEDS: LORazepam 2 MG TABLET PO PRN (08:30)
[2020-08-17] MEDS: ESCITALOPRAM OXALATE 10 MG TABLET PO SCH (08:30)
[2020-08-17 08:41] VITALS: BP 111/76
[2020-08-17 16:47] VITALS: BP 121/78
[2020-08-17] MEDS: QUEtiapine FUMARATE 200 MG TABLET PO SCH (20:41)
[2020-08-18 00:28] VITALS: BP 105/63
[2020-08-18] MEDS: DIVALPROEX SODIUM 250 MG DR TABLET PO SCH ×2 (08:43→20:44)
[2020-08-18] MEDS: LORazepam 2 MG TABLET PO PRN ×2 (08:43→20:44)
[2020-08-18] MEDS: ESCITALOPRAM OXALATE 10 MG TABLET PO SCH (08:43)
[2020-08-18 09:03] VITALS: BP 107/72
[2020-08-18 16:30] VITALS: BP 110/70
[2020-08-18] MEDS: QUEtiapine FUMARATE 200 MG TABLET PO SCH (20:44)
[2020-08-19 04:23] VITALS: BP 119/87
[2020-08-19 08:33] VITALS: BP 116/72
[2020-08-19] MEDS: LORazepam 2 MG TABLET PO PRN (08:39)
[2020-08-19] MEDS: ESCITALOPRAM OXALATE 10 MG TABLET PO SCH (08:39)
[2020-08-19] MEDS: DIVALPROEX SODIUM 250 MG DR TABLET PO SCH ×2 (08:39→20:05)
[2020-08-19 16:16] VITALS: BP 111/79
[2020-08-19] MEDS: QUEtiapine FUMARATE 200 MG TABLET PO SCH (20:05)
[2020-08-20 05:17] VITALS: BP 110/73
[2020-08-20 08:27] VITALS: BP 113/76
[2020-08-20] MEDS: DIVALPROEX SODIUM 250 MG DR TABLET PO SCH ×2 (09:16→20:59)
[2020-08-20] MEDS: ESCITALOPRAM OXALATE 10 MG TABLET PO SCH (09:16)
[2020-08-20 16:21] VITALS: BP 117/69
[2020-08-20] MEDS: QUEtiapine FUMARATE 200 MG TABLET PO SCH (20:59)
[2020-08-21 05:48] VITALS: BP 100/70
[2020-08-21 08:22] VITALS: BP 111/70
[2020-08-21] MEDS: ESCITALOPRAM OXALATE 10 MG TABLET PO SCH (08:36)
[2020-08-21] MEDS: DIVALPROEX SODIUM 250 MG DR TABLET PO SCH ×2 (08:37→20:07)
[2020-08-21 16:10] VITALS: BP 123/78
[2020-08-21] MEDS: LORazepam 2 MG TABLET PO PRN (16:11)
[2020-08-21] MEDS: QUEtiapine FUMARATE 200 MG TABLET PO SCH (20:07)
[2020-08-22 04:43] VITALS: BP 117/72
[2020-08-22 08:13] VITALS: BP 101/71
[2020-08-22] MEDS: DIVALPROEX SODIUM 250 MG DR TABLET PO SCH ×2 (08:38→20:46)
[2020-08-22] MEDS: ESCITALOPRAM OXALATE 10 MG TABLET PO SCH (08:38)
[2020-08-22 16:11] VITALS: BP 107/68
[2020-08-22] MEDS: QUEtiapine FUMARATE 200 MG TABLET PO SCH (20:46)
[2020-08-22] MEDS: ZOLPIDEM TARTRATE 10 MG TABLET PO PRN (22:19)
[2020-08-23 02:15] VITALS: BP 115/70
[2020-08-23 08:41] VITALS: BP 108/71
[2020-08-23] MEDS: ESCITALOPRAM OXALATE 10 MG TABLET PO SCH (08:52)
[2020-08-23] MEDS: DIVALPROEX SODIUM 250 MG DR TABLET PO SCH ×2 (08:52→20:38)
[2020-08-23 16:09] VITALS: BP 118/76
[2020-08-23] MEDS: QUEtiapine FUMARATE 200 MG TABLET PO SCH (20:38)
[2020-08-24 04:44] VITALS: BP 109/71
[2020-08-24 08:25] VITALS: BP 112/81
[2020-08-24] MEDS: DIVALPROEX SODIUM 250 MG DR TABLET PO SCH ×2 (09:41→20:45)
[2020-08-24] MEDS: ESCITALOPRAM OXALATE 10 MG TABLET PO SCH (09:41)
[2020-08-24] MEDS: LORazepam 2 MG TABLET PO PRN (09:41)
[2020-08-24 16:10] VITALS: BP 115/76
[2020-08-24] MEDS: QUEtiapine FUMARATE 200 MG TABLET PO SCH (20:45)
[2020-08-25 05:28] VITALS: BP 118/77
[2020-08-25] MEDS: DIVALPROEX SODIUM 250 MG DR TABLET PO SCH ×2 (08:53→20:43)
[2020-08-25] MEDS: ESCITALOPRAM OXALATE 10 MG TABLET PO SCH (08:53)
[2020-08-25 09:00] VITALS: BP 126/78
[2020-08-25 16:15] VITALS: BP 122/75
[2020-08-25] MEDS: QUEtiapine FUMARATE 200 MG TABLET PO SCH (20:43)
[2020-08-26 00:48] VITALS: BP 130/87
[2020-08-26 08:30] VITALS: BP 103/70
[2020-08-26] MEDS: DIVALPROEX SODIUM 250 MG DR TABLET PO SCH ×2 (08:51→20:55)
[2020-08-26] MEDS: ESCITALOPRAM OXALATE 10 MG TABLET PO SCH (08:51)
[2020-08-26 16:20] VITALS: BP 134/92
[2020-08-26] MEDS: QUEtiapine FUMARATE 200 MG TABLET PO SCH (20:55)
[2020-08-27 05:06] VITALS: BP 110/78
[2020-08-27 09:10] VITALS: BP 104/70
[2020-08-27] MEDS: DIVALPROEX SODIUM 250 MG DR TABLET PO SCH ×2 (09:34→20:57)
[2020-08-27] MEDS: ESCITALOPRAM OXALATE 10 MG TABLET PO SCH (09:34)
[2020-08-27] MEDS: LORazepam 2 MG TABLET PO PRN (09:34)
[2020-08-27] MEDS: HALOPERIDOL 5 MG TABLET PO PRN (09:34)
[2020-08-27 16:09] VITALS: BP 115/79
[2020-08-27] MEDS: QUEtiapine FUMARATE 200 MG TABLET PO SCH (20:57)
[2020-08-28 05:37] VITALS: BP 113/72
[2020-08-28 08:38] VITALS: BP 106/67
[2020-08-28] MEDS: DIVALPROEX SODIUM 250 MG DR TABLET PO SCH ×2 (09:14→21:02)
[2020-08-28] MEDS: ESCITALOPRAM OXALATE 10 MG TABLET PO SCH (09:14)
[2020-08-28 16:15] VITALS: BP 137/92
[2020-08-28] MEDS: HALOPERIDOL 5 MG TABLET PO PRN (17:07)
[2020-08-28] MEDS: LORazepam 2 MG TABLET PO PRN (17:07)
[2020-08-28] MEDS: QUEtiapine FUMARATE 200 MG TABLET PO SCH (21:02)
[2020-08-29 00:33] VITALS: BP 111/80
[2020-08-29 08:44] VITALS: BP 105/68
[2020-08-29] MEDS: DIVALPROEX SODIUM 250 MG DR TABLET PO SCH ×2 (09:51→20:36)
[2020-08-29] MEDS: ESCITALOPRAM OXALATE 10 MG TABLET PO SCH (09:51)
[2020-08-29 16:34] VITALS: BP 127/77
[2020-08-29] MEDS: QUEtiapine FUMARATE 200 MG TABLET PO SCH (20:36)
[2020-08-30 00:25] VITALS: BP 123/70
[2020-08-30 08:36] VITALS: BP 117/66
[2020-08-30] MEDS: ESCITALOPRAM OXALATE 10 MG TABLET PO SCH (08:51)
[2020-08-30] MEDS: DIVALPROEX SODIUM 250 MG DR TABLET PO SCH ×2 (08:51→20:59)
[2020-08-30 16:17] VITALS: BP 111/85
[2020-08-30] MEDS: QUEtiapine FUMARATE 200 MG TABLET PO SCH (21:00)
[2020-08-31 03:37] VITALS: BP 118/81
[2020-08-31] MEDS: ESCITALOPRAM OXALATE 10 MG TABLET PO SCH (08:50)
[2020-08-31] MEDS: DIVALPROEX SODIUM 250 MG DR TABLET PO SCH ×2 (08:50→20:32)
[2020-08-31 09:22] VITALS: BP 100/64
[2020-08-31 16:27] VITALS: BP 138/76
[2020-08-31] MEDS: QUEtiapine FUMARATE 200 MG TABLET PO SCH (20:32)
[2020-09-01 01:12] VITALS: BP 116/79
[2020-09-01 08:41] VITALS: BP 114/74
[2020-09-01] MEDS: ESCITALOPRAM OXALATE 10 MG TABLET PO SCH (09:18)
[2020-09-01] MEDS: DIVALPROEX SODIUM 250 MG DR TABLET PO SCH ×2 (09:18→20:38)
[2020-09-01 16:19] VITALS: BP 99/69
[2020-09-01] MEDS: QUEtiapine FUMARATE 200 MG TABLET PO SCH (20:38)
[2020-09-02 00:23] VITALS: BP 116/77
[2020-09-02 08:49] VITALS: BP 115/69
[2020-09-02] MEDS: ESCITALOPRAM OXALATE 10 MG TABLET PO SCH (08:50)
[2020-09-02] MEDS: DIVALPROEX SODIUM 250 MG DR TABLET PO SCH ×2 (08:50→20:15)
[2020-09-02 16:26] VITALS: BP 110/71
[2020-09-02] MEDS: QUEtiapine FUMARATE 200 MG TABLET PO SCH (20:15)
[2020-09-03 00:36] VITALS: BP 116/78
[2020-09-03 08:47] VITALS: BP 103/67
[2020-09-03] MEDS: ESCITALOPRAM OXALATE 10 MG TABLET PO SCH (09:43)
[2020-09-03] MEDS: DIVALPROEX SODIUM 250 MG DR TABLET PO SCH ×2 (09:43→20:38)
[2020-09-03 16:12] VITALS: BP 129/85
[2020-09-03] MEDS: HALOPERIDOL 5 MG TABLET PO PRN (17:34)
[2020-09-03] MEDS: LORazepam 2 MG TABLET PO PRN (17:34)
[2020-09-03] MEDS: QUEtiapine FUMARATE 200 MG TABLET PO SCH (20:38)
[2020-09-04 02:43] VITALS: BP 118/71
[2020-09-04 08:59] VITALS: BP 91/61
[2020-09-04] MEDS: DIVALPROEX SODIUM 250 MG DR TABLET PO SCH ×2 (09:04→20:40)
[2020-09-04] MEDS: ESCITALOPRAM OXALATE 10 MG TABLET PO SCH (09:04)
[2020-09-04 16:30] VITALS: BP 121/76
[2020-09-04] MEDS: LORazepam 2 MG TABLET PO PRN (17:37)
[2020-09-04] MEDS: QUEtiapine FUMARATE 200 MG TABLET PO SCH (20:40)
[2020-09-05 00:43] VITALS: BP 135/92
[2020-09-05 08:00] VITALS: BP 115/78
[2020-09-05] MEDS: ESCITALOPRAM OXALATE 10 MG TABLET PO SCH (08:43)
[2020-09-05] MEDS: DIVALPROEX SODIUM 250 MG DR TABLET PO SCH ×2 (08:43→20:09)
[2020-09-05 16:14] VITALS: BP 109/61
[2020-09-05] MEDS: QUEtiapine FUMARATE 200 MG TABLET PO SCH (20:08)
[2020-09-06 01:26] VITALS: BP 118/64
[2020-09-06] MEDS: DIVALPROEX SODIUM 250 MG DR TABLET PO SCH ×2 (08:49→20:39)
[2020-09-06] MEDS: ESCITALOPRAM OXALATE 10 MG TABLET PO SCH (08:49)
[2020-09-06 09:07] VITALS: BP 100/62
[2020-09-06 16:00] VITALS: BP 112/74
[2020-09-06] MEDS: QUEtiapine FUMARATE 200 MG TABLET PO SCH (20:39)
[2020-09-07 03:15] VITALS: BP 104/71
[2020-09-07 08:45] VITALS: BP 100/62
[2020-09-07] MEDS: DIVALPROEX SODIUM 250 MG DR TABLET PO SCH ×2 (08:48→20:27)
[2020-09-07] MEDS: ESCITALOPRAM OXALATE 10 MG TABLET PO SCH (08:48)
[2020-09-07 16:17] VITALS: BP 108/65
[2020-09-07] MEDS: QUEtiapine FUMARATE 200 MG TABLET PO SCH (20:28)
[2020-09-08 01:22] VITALS: BP 116/64
[2020-09-08 08:32] VITALS: BP 100/68
[2020-09-08] MEDS: ESCITALOPRAM OXALATE 10 MG TABLET PO SCH (09:24)
[2020-09-08] MEDS: DIVALPROEX SODIUM 250 MG DR TABLET PO SCH ×2 (09:24→20:41)
[2020-09-08 16:42] VITALS: BP 105/79
[2020-09-08] MEDS: QUEtiapine FUMARATE 200 MG TABLET PO SCH (20:41)
[2020-09-09 05:49] VITALS: BP 97/67
[2020-09-09 09:03] VITALS: BP 102/64
[2020-09-09] MEDS: ESCITALOPRAM OXALATE 10 MG TABLET PO SCH (09:13)
[2020-09-09] MEDS: DIVALPROEX SODIUM 250 MG DR TABLET PO SCH ×2 (09:13→20:40)
[2020-09-09 16:24] VITALS: BP 106/66
[2020-09-09] MEDS: QUEtiapine FUMARATE 200 MG TABLET PO SCH (20:40)
[2020-09-10 01:49] VITALS: BP 104/69
[2020-09-10 08:14] VITALS: BP 109/64
[2020-09-10] MEDS: DIVALPROEX SODIUM 250 MG DR TABLET PO SCH (08:41)
[2020-09-10] MEDS: ESCITALOPRAM OXALATE 10 MG TABLET PO SCH (08:41)
[2020-09-10 16:30] VITALS: BP 128/87
[2020-09-10] MEDS: QUEtiapine FUMARATE 200 MG TABLET PO SCH (20:36)
[2020-09-11 04:19] VITALS: BP 130/74
[2020-09-11] MEDS ORDERED: HALOPERIDOL 5 MG TABLET PO PRN (08:00)
[2020-09-11] MEDS: DIVALPROEX SODIUM 250 MG DR TABLET PO SCH ×2 (09:07→20:48)
[2020-09-11] MEDS: ESCITALOPRAM OXALATE 10 MG TABLET PO SCH (09:07)
[2020-09-11 09:34] VITALS: BP 127/83
[2020-09-11 16:35] VITALS: BP 125/81
[2020-09-11] MEDS: QUEtiapine FUMARATE 200 MG TABLET PO SCH (20:47)
[2020-09-12 04:16] VITALS: BP 110/80
[2020-09-12] MEDS: DIVALPROEX SODIUM 250 MG DR TABLET PO SCH ×2 (08:42→20:10)
[2020-09-12] MEDS: ESCITALOPRAM OXALATE 10 MG TABLET PO SCH (08:42)
[2020-09-12 08:52] VITALS: BP 98/72
[2020-09-12 16:17] VITALS: BP 111/79
[2020-09-12] MEDS: QUEtiapine FUMARATE 200 MG TABLET PO SCH (20:10)
[2020-09-13 06:09] VITALS: BP 108/70
[2020-09-13] MEDS: ESCITALOPRAM OXALATE 10 MG TABLET PO SCH (08:28)
[2020-09-13] MEDS: DIVALPROEX SODIUM 250 MG DR TABLET PO SCH ×2 (08:28→19:50)
[2020-09-13 08:52] VITALS: BP 112/74
[2020-09-13 16:29] VITALS: BP 119/81
[2020-09-13] MEDS: QUEtiapine FUMARATE 200 MG TABLET PO SCH (19:50)
[2020-09-14 03:03] VITALS: BP 116/78
[2020-09-14] MEDS: ESCITALOPRAM OXALATE 10 MG TABLET PO SCH (08:25)
[2020-09-14] MEDS: DIVALPROEX SODIUM 250 MG DR TABLET PO SCH ×2 (08:25→20:28)
[2020-09-14 08:29] VITALS: BP 109/75
[2020-09-14 16:21] VITALS: BP 132/87
[2020-09-14] MEDS: QUEtiapine FUMARATE 200 MG TABLET PO SCH (20:28)
[2020-09-15 01:27] VITALS: BP 121/71
[2020-09-15 08:23] VITALS: BP 101/67
[2020-09-15] MEDS: ESCITALOPRAM OXALATE 10 MG TABLET PO SCH (08:45)
[2020-09-15] MEDS: DIVALPROEX SODIUM 250 MG DR TABLET PO SCH ×2 (08:45→20:26)
[2020-09-15 16:53] VITALS: BP 104/68
[2020-09-15] MEDS: QUEtiapine FUMARATE 200 MG TABLET PO SCH (20:26)
[2020-09-16 05:29] VITALS: BP 114/74
[2020-09-16] MEDS: DIVALPROEX SODIUM 250 MG DR TABLET PO SCH ×2 (08:28→20:53)
[2020-09-16] MEDS: ESCITALOPRAM OXALATE 10 MG TABLET PO SCH (08:28)
[2020-09-16 09:04] VITALS: BP 121/75
[2020-09-16 17:03] VITALS: BP 128/76
[2020-09-16] MEDS: QUEtiapine FUMARATE 200 MG TABLET PO SCH (20:53)
[2020-09-17 01:44] VITALS: BP 119/75
[2020-09-17 09:02] VITALS: BP 113/75
[2020-09-17] MEDS: DIVALPROEX SODIUM 250 MG DR TABLET PO SCH ×2 (09:04→21:10)
[2020-09-17] MEDS: ESCITALOPRAM OXALATE 10 MG TABLET PO SCH (09:04)
[2020-09-17 16:19] VITALS: BP 149/90
[2020-09-17] MEDS: QUEtiapine FUMARATE 200 MG TABLET PO SCH (21:10)
[2020-09-18 00:24] VITALS: BP 112/79
[2020-09-18 08:09] VITALS: BP 100/68
[2020-09-18] MEDS: ESCITALOPRAM OXALATE 10 MG TABLET PO SCH (08:25)
[2020-09-18] MEDS: DIVALPROEX SODIUM 250 MG DR TABLET PO SCH ×2 (08:25→20:37)
[2020-09-18 16:24] VITALS: BP 125/72
[2020-09-18] MEDS: QUEtiapine FUMARATE 200 MG TABLET PO SCH (20:37)
[2020-09-19 01:13] VITALS: BP 101/66
[2020-09-19] MEDS: ESCITALOPRAM OXALATE 10 MG TABLET PO SCH (09:03)
[2020-09-19] MEDS: DIVALPROEX SODIUM 250 MG DR TABLET PO SCH ×2 (09:04→20:39)
[2020-09-19] MEDS: LORazepam 2 MG TABLET PO PRN (10:25)
[2020-09-19 11:12] VITALS: BP 108/78
[2020-09-19 16:21] VITALS: BP 114/74
[2020-09-19] MEDS: QUEtiapine FUMARATE 200 MG TABLET PO SCH (20:40)
[2020-09-20 05:35] VITALS: BP 110/70
[2020-09-20 08:51] VITALS: BP 118/76
[2020-09-20] MEDS: DIVALPROEX SODIUM 250 MG DR TABLET PO SCH ×2 (09:21→21:09)
[2020-09-20] MEDS: ESCITALOPRAM OXALATE 10 MG TABLET PO SCH (09:21)
[2020-09-20 16:21] VITALS: BP 124/78
[2020-09-20] MEDS: QUEtiapine FUMARATE 200 MG TABLET PO SCH (21:08)
[2020-09-21 02:42] VITALS: BP 110/72
[2020-09-21 08:56] VITALS: BP 107/71
[2020-09-21] MEDS: DIVALPROEX SODIUM 250 MG DR TABLET PO SCH ×2 (09:03→19:48)
[2020-09-21] MEDS: ESCITALOPRAM OXALATE 10 MG TABLET PO SCH (09:03)
[2020-09-21] MEDS: QUEtiapine FUMARATE 200 MG TABLET PO SCH (19:48)
[2020-09-21 21:28] VITALS: BP 133/90
[2020-09-22 00:46] VITALS: BP 125/85
[2020-09-22 08:00] VITALS: BP 128/80
[2020-09-22] MEDS: DIVALPROEX SODIUM 250 MG DR TABLET PO SCH ×2 (09:23→20:49)
[2020-09-22] MEDS: ESCITALOPRAM OXALATE 10 MG TABLET PO SCH (09:24)
[2020-09-22 17:11] VITALS: BP 114/82
[2020-09-22] MEDS: QUEtiapine FUMARATE 200 MG TABLET PO SCH (20:49)
[2020-09-23 05:00] VITALS: BP 118/79
[2020-09-23 08:26] VITALS: BP 119/78
[2020-09-23] MEDS: ESCITALOPRAM OXALATE 10 MG TABLET PO SCH (09:31)
[2020-09-23] MEDS: DIVALPROEX SODIUM 250 MG DR TABLET PO SCH ×2 (09:31→20:41)
[2020-09-23 17:03] VITALS: BP 127/84
[2020-09-23] MEDS: QUEtiapine FUMARATE 200 MG TABLET PO SCH (20:41)
[2020-09-24 05:37] VITALS: BP 121/79
[2020-09-24] MEDS: DIVALPROEX SODIUM 250 MG DR TABLET PO SCH ×2 (09:47→19:49)
[2020-09-24] MEDS: ESCITALOPRAM OXALATE 10 MG TABLET PO SCH (09:47)
[2020-09-24 10:42] VITALS: BP 119/66
[2020-09-24 16:26] VITALS: BP 115/78
[2020-09-24] MEDS: QUEtiapine FUMARATE 200 MG TABLET PO SCH (19:50)
[2020-09-25 06:37] VITALS: BP 118/72
[2020-09-25] MEDS: DIVALPROEX SODIUM 250 MG DR TABLET PO SCH ×2 (10:00→20:15)
[2020-09-25] MEDS: ESCITALOPRAM OXALATE 10 MG TABLET PO SCH (10:00)
[2020-09-25 10:10] VITALS: BP 116/70
[2020-09-25 16:12] VITALS: BP 101/70
[2020-09-25] MEDS: QUEtiapine FUMARATE 200 MG TABLET PO SCH (20:15)
[2020-09-26 05:00] VITALS: BP 123/78
[2020-09-26 08:24] VITALS: BP 107/75
[2020-09-26] MEDS: DIVALPROEX SODIUM 250 MG DR TABLET PO SCH ×2 (09:18→20:49)
[2020-09-26] MEDS: ESCITALOPRAM OXALATE 10 MG TABLET PO SCH (09:18)
[2020-09-26 16:16] VITALS: BP 138/80
[2020-09-26] MEDS: QUEtiapine FUMARATE 200 MG TABLET PO SCH (20:48)
[2020-09-27 01:46] VITALS: BP 110/72
[2020-09-27] MEDS: DIVALPROEX SODIUM 250 MG DR TABLET PO SCH ×2 (08:21→20:04)
[2020-09-27] MEDS: ESCITALOPRAM OXALATE 10 MG TABLET PO SCH (08:21)
[2020-09-27 08:34] VITALS: BP 105/73
[2020-09-27 16:19] VITALS: BP 116/78
[2020-09-27] MEDS: QUEtiapine FUMARATE 200 MG TABLET PO SCH (20:04)
[2020-09-28 06:12] VITALS: BP 108/73
[2020-09-28 08:51] VITALS: BP 104/66
[2020-09-28] MEDS: DIVALPROEX SODIUM 250 MG DR TABLET PO SCH ×2 (09:04→20:45)
[2020-09-28] MEDS: ESCITALOPRAM OXALATE 10 MG TABLET PO SCH (09:04)
[2020-09-28 16:16] VITALS: BP 115/70
[2020-09-28] MEDS: QUEtiapine FUMARATE 200 MG TABLET PO SCH (20:45)
[2020-09-29 01:20] VITALS: BP 112/69
[2020-09-29] MEDS: DIVALPROEX SODIUM 250 MG DR TABLET PO SCH ×2 (09:17→20:56)
[2020-09-29] MEDS: ESCITALOPRAM OXALATE 10 MG TABLET PO SCH (09:17)
[2020-09-29 09:37] VITALS: BP 113/72
[2020-09-29 16:21] VITALS: BP 113/73
[2020-09-29] MEDS: QUEtiapine FUMARATE 200 MG TABLET PO SCH (20:56)
[2020-09-30 07:17] VITALS: BP 120/73
[2020-09-30 08:36] VITALS: BP 116/79
[2020-09-30] MEDS: ESCITALOPRAM OXALATE 10 MG TABLET PO SCH (09:00)
[2020-09-30] MEDS: DIVALPROEX SODIUM 250 MG DR TABLET PO SCH ×2 (09:00→21:14)
[2020-09-30 16:20] VITALS: BP 134/89
[2020-09-30] MEDS: QUEtiapine FUMARATE 200 MG TABLET PO SCH (21:14)
[2020-10-01 01:59] VITALS: BP 130/85
[2020-10-01] MEDS: DIVALPROEX SODIUM 250 MG DR TABLET PO SCH ×2 (08:32→20:54)
[2020-10-01] MEDS: ESCITALOPRAM OXALATE 10 MG TABLET PO SCH (08:32)
[2020-10-01 08:55] VITALS: BP 101/69
[2020-10-01 16:16] VITALS: BP 114/78
[2020-10-01] MEDS: QUEtiapine FUMARATE 200 MG TABLET PO SCH (20:54)
[2020-10-02 06:23] VITALS: BP 115/82
[2020-10-02] MEDS: ESCITALOPRAM OXALATE 10 MG TABLET PO SCH (08:56)
[2020-10-02] MEDS: DIVALPROEX SODIUM 250 MG DR TABLET PO SCH ×2 (08:56→20:53)
[2020-10-02 09:22] VITALS: BP 113/70
[2020-10-02 16:51] VITALS: BP 113/74
[2020-10-02] MEDS: QUEtiapine FUMARATE 200 MG TABLET PO SCH (20:52)
[2020-10-03 01:43] VITALS: BP 118/76
[2020-10-03] MEDS: DIVALPROEX SODIUM 250 MG DR TABLET PO SCH ×2 (08:57→20:30)
[2020-10-03] MEDS: ESCITALOPRAM OXALATE 10 MG TABLET PO SCH (08:57)
[2020-10-03 10:48] VITALS: BP 115/67
[2020-10-03 16:42] VITALS: BP 109/62
[2020-10-03] MEDS: QUEtiapine FUMARATE 200 MG TABLET PO SCH (20:30)
[2020-10-04 02:36] VITALS: BP 122/84
[2020-10-04 08:44] VITALS: BP 109/68
[2020-10-04] MEDS: ESCITALOPRAM OXALATE 10 MG TABLET PO SCH (08:47)
[2020-10-04] MEDS: DIVALPROEX SODIUM 250 MG DR TABLET PO SCH ×2 (08:47→20:43)
[2020-10-04 16:24] VITALS: BP 114/68
[2020-10-04] MEDS: QUEtiapine FUMARATE 200 MG TABLET PO SCH (20:43)
[2020-10-05 04:41] VITALS: BP 116/66
[2020-10-05] MEDS: DIVALPROEX SODIUM 250 MG DR TABLET PO SCH ×2 (09:33→20:20)
[2020-10-05] MEDS: ESCITALOPRAM OXALATE 10 MG TABLET PO SCH (09:33)
[2020-10-05 13:07] VITALS: BP 98/66
[2020-10-05 16:37] VITALS: BP 102/73
[2020-10-05] MEDS: QUEtiapine FUMARATE 200 MG TABLET PO SCH (20:20)
[2020-10-06 06:13] VITALS: BP 118/89
[2020-10-06 08:29] VITALS: BP 106/68
[2020-10-06] MEDS: DIVALPROEX SODIUM 250 MG DR TABLET PO SCH ×2 (09:20→20:53)
[2020-10-06] MEDS: ESCITALOPRAM OXALATE 10 MG TABLET PO SCH (09:20)
[2020-10-06 16:25] VITALS: BP 100/63
[2020-10-06] MEDS: QUEtiapine FUMARATE 200 MG TABLET PO SCH (20:53)
[2020-10-07 05:05] VITALS: BP 112/64
[2020-10-07 08:26] VITALS: BP 106/70
[2020-10-07] MEDS: DIVALPROEX SODIUM 250 MG DR TABLET PO SCH ×2 (09:42→20:05)
[2020-10-07] MEDS: ESCITALOPRAM OXALATE 10 MG TABLET PO SCH (09:42)
[2020-10-07 16:14] VITALS: BP 118/84
[2020-10-07] MEDS: QUEtiapine FUMARATE 200 MG TABLET PO SCH (20:05)
[2020-10-08 05:08] VITALS: BP 116/76
[2020-10-08] MEDS: DIVALPROEX SODIUM 250 MG DR TABLET PO SCH ×2 (08:48→20:37)
[2020-10-08 08:54] VITALS: BP 108/78
[2020-10-08] MEDS: ESCITALOPRAM OXALATE 10 MG TABLET PO SCH (09:05)
[2020-10-08 16:37] VITALS: BP 112/75
[2020-10-08] MEDS: QUEtiapine FUMARATE 200 MG TABLET PO SCH (20:37)
[2020-10-09 06:14] VITALS: BP 117/74
[2020-10-09 08:39] VITALS: BP 100/67
[2020-10-09] MEDS: ESCITALOPRAM OXALATE 10 MG TABLET PO SCH (08:48)
[2020-10-09] MEDS: DIVALPROEX SODIUM 250 MG DR TABLET PO SCH ×2 (08:48→20:53)
[2020-10-09 16:18] VITALS: BP 130/80
[2020-10-09] MEDS: QUEtiapine FUMARATE 200 MG TABLET PO SCH (20:54)
[2020-10-10 02:26] VITALS: BP 126/81
[2020-10-10 08:38] VITALS: BP 102/70
[2020-10-10] MEDS: ESCITALOPRAM OXALATE 10 MG TABLET PO SCH (09:23)
[2020-10-10] MEDS: DIVALPROEX SODIUM 250 MG DR TABLET PO SCH ×2 (09:23→20:33)
[2020-10-10 17:39] VITALS: BP 110/75
[2020-10-10] MEDS: QUEtiapine FUMARATE 200 MG TABLET PO SCH (20:33)
[2020-10-11 05:10] VITALS: BP 108/74
[2020-10-11] MEDS: DIVALPROEX SODIUM 250 MG DR TABLET PO SCH ×2 (09:02→20:08)
[2020-10-11] MEDS: ESCITALOPRAM OXALATE 10 MG TABLET PO SCH (09:02)
[2020-10-11 10:11] VITALS: BP 105/64
[2020-10-11 16:36] VITALS: BP 121/76
[2020-10-11] MEDS: QUEtiapine FUMARATE 200 MG TABLET PO SCH (20:08)
[2020-10-12 00:19] VITALS: BP 118/76
[2020-10-12 08:27] VITALS: BP 110/67
[2020-10-12] MEDS: DIVALPROEX SODIUM 250 MG DR TABLET PO SCH ×2 (09:07→20:35)
[2020-10-12] MEDS: ESCITALOPRAM OXALATE 10 MG TABLET PO SCH (09:07)
[2020-10-12 16:18] VITALS: BP 127/74
[2020-10-12] MEDS: QUEtiapine FUMARATE 200 MG TABLET PO SCH (20:36)
[2020-10-13 05:10] VITALS: BP 118/74
[2020-10-13] MEDS: ESCITALOPRAM OXALATE 10 MG TABLET PO SCH (09:06)
[2020-10-13] MEDS: DIVALPROEX SODIUM 250 MG DR TABLET PO SCH ×2 (09:07→20:48)
[2020-10-13 09:41] VITALS: BP 108/67
[2020-10-13 16:17] VITALS: BP 118/79
[2020-10-13] MEDS: QUEtiapine FUMARATE 200 MG TABLET PO SCH (20:48)
[2020-10-14 01:04] VITALS: BP 105/75
[2020-10-14 08:44] VITALS: BP 103/69
[2020-10-14] MEDS: ESCITALOPRAM OXALATE 10 MG TABLET PO SCH (09:09)
[2020-10-14] MEDS: DIVALPROEX SODIUM 250 MG DR TABLET PO SCH ×2 (09:09→20:31)
[2020-10-14 16:30] VITALS: BP 110/69
[2020-10-14] MEDS: QUEtiapine FUMARATE 200 MG TABLET PO SCH (20:31)
[2020-10-15 00:21] VITALS: BP 118/84
[2020-10-15] MEDS: ESCITALOPRAM OXALATE 10 MG TABLET PO SCH (09:22)
[2020-10-15] MEDS: DIVALPROEX SODIUM 250 MG DR TABLET PO SCH ×2 (09:23→20:27)
[2020-10-15 09:30] VITALS: BP 101/78
[2020-10-15 16:52] VITALS: BP 106/79
[2020-10-15] MEDS: QUEtiapine FUMARATE 200 MG TABLET PO SCH (20:27)
[2020-10-16 05:45] VITALS: BP 108/68
[2020-10-16 09:13] VITALS: BP 102/67
[2020-10-16] MEDS: ESCITALOPRAM OXALATE 10 MG TABLET PO SCH (09:42)
[2020-10-16] MEDS: DIVALPROEX SODIUM 250 MG DR TABLET PO SCH ×2 (09:42→21:32)
[2020-10-16 16:47] VITALS: BP 107/69
[2020-10-16] MEDS: QUEtiapine FUMARATE 200 MG TABLET PO SCH (21:32)
[2020-10-17 01:12] VITALS: BP 122/77
[2020-10-17] MEDS: ESCITALOPRAM OXALATE 10 MG TABLET PO SCH (08:50)
[2020-10-17] MEDS: DIVALPROEX SODIUM 250 MG DR TABLET PO SCH ×2 (08:50→20:43)
[2020-10-17 09:29] VITALS: BP 100/72
[2020-10-17 16:24] VITALS: BP 112/77
[2020-10-17] MEDS: QUEtiapine FUMARATE 200 MG TABLET PO SCH (20:43)
[2020-10-18 02:29] VITALS: BP 125/74
[2020-10-18 08:45] VITALS: BP 102/67
[2020-10-18] MEDS: ESCITALOPRAM OXALATE 10 MG TABLET PO SCH (08:47)
[2020-10-18] MEDS: DIVALPROEX SODIUM 250 MG DR TABLET PO SCH ×2 (08:48→20:16)
[2020-10-18 16:22] VITALS: BP 114/66
[2020-10-18] MEDS: QUEtiapine FUMARATE 200 MG TABLET PO SCH (20:16)
[2020-10-19 00:23] VITALS: BP 118/70
[2020-10-19] MEDS: DIVALPROEX SODIUM 250 MG DR TABLET PO SCH ×2 (08:28→20:46)
[2020-10-19] MEDS: ESCITALOPRAM OXALATE 10 MG TABLET PO SCH (08:28)
[2020-10-19 08:57] VITALS: BP 114/66
[2020-10-19 16:55] VITALS: BP 106/65
[2020-10-19] MEDS: QUEtiapine FUMARATE 200 MG TABLET PO SCH (20:46)
[2020-10-20 04:30] VITALS: BP 110/61
[2020-10-20 08:42] VITALS: BP 106/66
[2020-10-20] MEDS: DIVALPROEX SODIUM 250 MG DR TABLET PO SCH ×2 (09:08→20:55)
[2020-10-20] MEDS: ESCITALOPRAM OXALATE 10 MG TABLET PO SCH (09:08)
[2020-10-20 16:29] VITALS: BP 104/71
[2020-10-20] MEDS: QUEtiapine FUMARATE 200 MG TABLET PO SCH (20:55)
[2020-10-21 00:34] VITALS: BP 125/70
[2020-10-21] MEDS: ESCITALOPRAM OXALATE 10 MG TABLET PO SCH (08:57)
[2020-10-21] MEDS: DIVALPROEX SODIUM 250 MG DR TABLET PO SCH ×2 (08:57→20:44)
[2020-10-21 09:07] VITALS: BP 111/72
[2020-10-21 16:31] VITALS: BP 101/70
[2020-10-21] MEDS: QUEtiapine FUMARATE 200 MG TABLET PO SCH (20:44)
[2020-10-22 02:20] VITALS: BP 131/81
[2020-10-22 08:18] VITALS: BP 124/69
[2020-10-22] MEDS: DIVALPROEX SODIUM 250 MG DR TABLET PO SCH ×2 (09:46→20:27)
[2020-10-22] MEDS: ESCITALOPRAM OXALATE 10 MG TABLET PO SCH (09:46)
[2020-10-22 16:26] VITALS: BP 122/70
[2020-10-22] MEDS: QUEtiapine FUMARATE 200 MG TABLET PO SCH (20:27)
[2020-10-23 03:27] VITALS: BP 117/75
[2020-10-23] MEDS: LORazepam 2 MG TABLET PO PRN (09:02)
[2020-10-23] MEDS: ESCITALOPRAM OXALATE 10 MG TABLET PO SCH (09:03)
[2020-10-23] MEDS: DIVALPROEX SODIUM 250 MG DR TABLET PO SCH ×2 (09:03→20:52)
[2020-10-23 09:12] VITALS: BP 108/70
[2020-10-23 16:25] VITALS: BP 110/79
[2020-10-23] MEDS: QUEtiapine FUMARATE 200 MG TABLET PO SCH (20:52)
[2020-10-24 06:43] VITALS: BP 106/73
[2020-10-24 08:46] VITALS: BP 112/81
[2020-10-24] MEDS: ESCITALOPRAM OXALATE 10 MG TABLET PO SCH (08:58)
[2020-10-24] MEDS: DIVALPROEX SODIUM 250 MG DR TABLET PO SCH ×2 (08:58→21:06)
[2020-10-24 17:42] VITALS: BP 110/67
[2020-10-24] MEDS: QUEtiapine FUMARATE 200 MG TABLET PO SCH (21:06)
[2020-10-25 00:23] VITALS: BP 116/70
[2020-10-25] MEDS: DIVALPROEX SODIUM 250 MG DR TABLET PO SCH ×2 (08:20→20:22)
[2020-10-25] MEDS: ESCITALOPRAM OXALATE 10 MG TABLET PO SCH (08:20)
[2020-10-25 09:22] VITALS: BP 121/88
[2020-10-25 17:48] VITALS: BP 114/73
[2020-10-25] MEDS: QUEtiapine FUMARATE 200 MG TABLET PO SCH (20:22)
[2020-10-26 02:21] VITALS: BP 118/80
[2020-10-26 08:12] VITALS: BP 110/73
[2020-10-26] MEDS: DIVALPROEX SODIUM 250 MG DR TABLET PO SCH ×2 (09:22→20:30)
[2020-10-26] MEDS: ESCITALOPRAM OXALATE 10 MG TABLET PO SCH (09:23)
[2020-10-26 16:33] VITALS: BP 110/75
[2020-10-26] MEDS: QUEtiapine FUMARATE 200 MG TABLET PO SCH (20:30)
[2020-10-27 06:12] VITALS: BP 112/78
[2020-10-27 09:06] VITALS: BP 111/70
[2020-10-27] MEDS: ESCITALOPRAM OXALATE 10 MG TABLET PO SCH (09:42)
[2020-10-27] MEDS: DIVALPROEX SODIUM 250 MG DR TABLET PO SCH ×2 (09:42→20:36)
[2020-10-27 16:29] VITALS: BP 106/78
[2020-10-27] MEDS: QUEtiapine FUMARATE 200 MG TABLET PO SCH (20:36)
[2020-10-28 01:15] VITALS: BP 115/80
[2020-10-28 08:52] VITALS: BP 125/91
[2020-10-28] MEDS: DIVALPROEX SODIUM 250 MG DR TABLET PO SCH ×2 (08:59→20:23)
[2020-10-28] MEDS: ESCITALOPRAM OXALATE 10 MG TABLET PO SCH (08:59)
[2020-10-28 16:30] VITALS: BP 121/90
[2020-10-28] MEDS: QUEtiapine FUMARATE 200 MG TABLET PO SCH (20:23)
[2020-10-29 00:21] VITALS: BP 125/84
[2020-10-29 08:29] VITALS: BP 137/92
[2020-10-29] MEDS: DIVALPROEX SODIUM 250 MG DR TABLET PO SCH ×2 (08:56→20:21)
[2020-10-29] MEDS: ESCITALOPRAM OXALATE 10 MG TABLET PO SCH (08:56)
[2020-10-29 16:38] VITALS: BP 103/65
[2020-10-29] MEDS: QUEtiapine FUMARATE 200 MG TABLET PO SCH (20:21)
[2020-10-30 04:40] VITALS: BP 120/78
[2020-10-30 08:21] VITALS: BP 116/75
[2020-10-30] MEDS: DIVALPROEX SODIUM 250 MG DR TABLET PO SCH ×2 (09:14→20:39)
[2020-10-30] MEDS: ESCITALOPRAM OXALATE 10 MG TABLET PO SCH (09:14)
[2020-10-30 17:40] VITALS: BP 104/75
[2020-10-30] MEDS: QUEtiapine FUMARATE 200 MG TABLET PO SCH (20:39)
[2020-10-31 05:28] VITALS: BP 122/74
[2020-10-31 08:22] VITALS: BP 135/96
[2020-10-31] MEDS: DIVALPROEX SODIUM 250 MG DR TABLET PO SCH ×2 (08:31→20:54)
[2020-10-31] MEDS: ESCITALOPRAM OXALATE 10 MG TABLET PO SCH (08:32)
[2020-10-31 16:56] VITALS: BP 131/89
[2020-10-31] MEDS: QUEtiapine FUMARATE 200 MG TABLET PO SCH (20:54)
[2020-10-31 21:28] LABS: GLUCOMETER DEV NAME(LOC) POC.BV
[2020-11-01 02:45] VITALS: BP 132/91
[2020-11-01 07:51] LABS: ALANINE AMINOTRANSFERASE 57 U/L (12-78); ALBUMIN 3.1 g/dL (3.4-5.0); ALKALINE PHOSPHATASE 57 U/L (46-116); ANION GAP 9 mmol/L (8-16); ASPARTATE AMINOTRANSFERASE 22 U/L (15-37); BILIRUBIN,TOTAL 0.2 mg/dL (0.1-1.0); CALCIUM, TOTAL 7.9 mg/dL (8.8-10.5); CARBON DIOXIDE 28 mmol/L (22-29); CHLORIDE 103 mmol/L (98-107); CREATININE 0.81 mg/dL (0.60-1.30); GLOMERULAR FILTR. RATE CALC > 60 mL/min (>60); GLUCOSE,RANDOM 116 mg/dL (70-110); POTASSIUM 4.3 mmol/L (3.5-5.1); SODIUM SERUM 140 mmol/L (136-145); TOTAL PROTEIN, SERUM 6.3 g/dL (6.4-8.2); UREA NITROGEN, BLOOD 19 mg/dL (7-18)
[2020-11-01 08:40] VITALS: BP 136/97
[2020-11-01] MEDS: DIVALPROEX SODIUM 250 MG DR TABLET PO SCH ×2 (08:41→20:26)
[2020-11-01] MEDS: ESCITALOPRAM OXALATE 10 MG TABLET PO SCH (08:42)
[2020-11-01 16:19] VITALS: BP 106/76
[2020-11-01] MEDS: QUEtiapine FUMARATE 200 MG TABLET PO SCH (20:26)
[2020-11-02 05:15] VITALS: BP 120/76
[2020-11-02] MEDS: ESCITALOPRAM OXALATE 10 MG TABLET PO SCH (08:31)
[2020-11-02] MEDS: DIVALPROEX SODIUM 250 MG DR TABLET PO SCH ×2 (08:31→20:39)
[2020-11-02 09:00] VITALS: BP 108/74
[2020-11-02 16:29] VITALS: BP 128/90
[2020-11-02] MEDS: QUEtiapine FUMARATE 200 MG TABLET PO SCH (20:39)
[2020-11-03 04:37] VITALS: BP 118/76
[2020-11-03] MEDS: ESCITALOPRAM OXALATE 10 MG TABLET PO SCH (08:35)
[2020-11-03] MEDS: DIVALPROEX SODIUM 250 MG DR TABLET PO SCH ×2 (08:36→20:59)
[2020-11-03 08:42] VITALS: BP 104/72
[2020-11-03 16:19] VITALS: BP 116/81
[2020-11-03] MEDS: QUEtiapine FUMARATE 200 MG TABLET PO SCH (20:59)
[2020-11-04 05:37] VITALS: BP 110/80
[2020-11-04] MEDS: DIVALPROEX SODIUM 250 MG DR TABLET PO SCH (08:28)
[2020-11-04] MEDS: ESCITALOPRAM OXALATE 10 MG TABLET PO SCH (08:28)
[2020-11-04 09:15] VITALS: BP 115/79
[2020-11-04] MEDS ORDERED: ESCI10 PO (09:50)
[2020-11-04] MEDS ORDERED: QUET200T30 PO (09:50)
[2020-11-04] MEDS ORDERED: DIVA-111 PO (09:50)
== END 2020-11-04 12:45 | DRG 885 ==
LOC: EMS 10:48 → B2S 14:12 → UNDOADMIN 15:14 → B3A 06-16 20:30
DX: F20.0 Paranoid schizophrenia (principal); E87.0 Hyperosmolality and hypernatremia; I10 Essential (primary) hypertension; E03.9 Hypothyroidism, unspecified; E78.00 Pure hypercholesterolemia, unspecified; Z20.822 Contact with and (suspected) exposure to COVID-19; D64.9 Anemia, unspecified; E78.5 Hyperlipidemia, unspecified; F17.200 Nicotine dependence, unspecified, uncomplicated; F10.10 Alcohol abuse, uncomplicated; Y90.0 Blood alcohol level of less than 20 mg/100 ml; F42.9 Obsessive-compulsive disorder, unspecified; Z59.0 Homelessness; Z79.899 Other long term (current) drug therapy
CPT/HCPCS: 70450; 80053; 80061; 80164; 80307; 81001; 81003; 82607; 82746; 84439; 84443; 85025; 99285; G0480

== ENCOUNTER 2020-06-05 11:45 | Emergency (ER) | payer OTHER ==
[~2020-06-05] VITALS: Ht 170.2 cm; Wt 77.0 kg
[2020-06-05 16:18] VITALS: BP 117/77
== END 2020-06-05 16:55 | disposition home or self-care (01) ==
LOC: EMS 11:45
DX: S60.221A Contusion of right hand, initial encounter (principal); I10 Essential (primary) hypertension; E78.00 Pure hypercholesterolemia, unspecified; F20.9 Schizophrenia, unspecified; F17.210 Nicotine dependence, cigarettes, uncomplicated; Z79.82 Long term (current) use of aspirin; Y04.0XXA Assault by unarmed brawl or fight, initial encounter; Y93.89 Activity, other specified; Y92.89 Other specified places as the place of occurrence of the external cause; Y99.8 Other external cause status
CPT/HCPCS: 99283